=== PATIENT | male | born 1985 | race Caucasian/White ===

== ENCOUNTER 2025-02-07 18:22 | Emergency (ER) | payer SELFPAY ==
--- NOTE | ~2025-02-07 | XR_ITS ---
CLINICAL HISTORY: laceration to L 2nd 3rd digits 3 view left hand Comparison: None provided Findings: Comminuted fracture of the distal end of the middle phalanx of the third digit with intra-articular extension. Fracture is not significantly displaced. Degenerative changes of the proximal interphalangeal joint of the 5th digit, likely secondary to previous injury. No erosions. No radiopaque foreign body. Soft tissue swelling of the distal end of the 3rd digit. IMPRESSION: Comminuted nondisplaced intra-articular fracture of the middle phalanx of the 3rd digit. This document has been electronically signed by: Esteban Anne MD on 02/07/2025 19:07:12
[2025-02-07 18:30] VITALS: BP 129/74; PULSE 117; RESP 20; TEMP 37; O2SAT 95; BMI 31.4
--- NOTE | 2025-02-07 18:35 | ED_ITS ---
HPI - General Adult General Chief complaint: Wound/Laceration Stated complaint: hit by something from robotic machine tender production to hand Time Seen by Provider: 02/07/25 21:39 Source: patient, RN notes reviewed and old records reviewed Mode of arrival: ambulatory Limitations: no limitations History of Present Illness ED Provider: Bernadette HPI narrative: 39-year-old male presents for evaluation of a left hand laceration. 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 He feels as though something was jammed He shut the blades off. He did not stick his hand in the blades, but rather something which he believes was a block of ice shot out of the blades and struck him in the left hand He was wearing gloves but immediately felt pain to the 2nd and 3rd finger. He noticed a laceration on the palmar side of the knees. He reports his last tetanus was updated earlier this year Denies any other injuries Related Data Previous Rx's ?Medication ?Instructions ?Recorded cephalexin 500 mg tablet 500 mg PO TID #14 tabs 02/07 Allergies Allergy/AdvReac Type Severity Reaction Status Date / Time No Known Allergies Allergy Verified 02/07/25 18:37 Review of Systems Constitutional: Constitutional: Denies body ache(s), Denies chills and Denies fever(s) Cardiovascular: Cardiovascular: Denies chest pain and Denies dyspnea on exertion Respiratory: Respiratory: Denies cough and Denies dyspnea on exertion Musculoskeletal: Musculoskeletal: Reports arthralgias, Reports joint swelling and Reports limited range of motion Integumentary/Breasts: Skin/Breast: Denies erythema and Reports wounds PMFSH Social History Social History Advance Directives: No Advance Directives Information Provided: No Do you have a plan to hurt others: No Plan Physical Exam ED Vital Signs: Vital Signs - 24 hr 02/07/25 18:30 Temperature 98.6 F Pulse Rate 117 H Respiratory Rate 20 Blood Pressure 129/74 Pulse Oximetry 95 Oxygen Delivery Method Room Air BMI result Body Mass Index 31.4 Const General: healthy appearing, comfortable, no acute distress, alert and awake Nutritional Appearance: well nourished Orientation/consciousness: patient oriented x3 HENMT Head: Yes normocephalic and Yes atraumatic Eyes Eyelids: Yes eyelids normal Conjunctivae: conjunctivae normal Sclerae: sclerae normal Corneas: corneas normal Pupils: Equal, round and reactive pupils present EOM: EOMs intact bilaterally Neck Neck: Yes full ROM Resp Effort & Inspection: normal respiratory effort, able to speak in complete sentences and not labored Skin Other: The patient has very similar lacerations on the palmar surface of the left 2nd and 3rd fingers to the middle phalanx of each. Each laceration is linear, about 3cm in length. The patient is unable to flex each finger at the D IP joint. General skin exam: elasticity normal Neuro General: patient oriented x3 Cranial nerves: Yes Equal, round and reactive pupils present and Yes Bilaterally intact EOM present Cognition (Neuro): normal cognition Course Course Course Narrative: This is a Rapid Medical Examination (RME) performed by Gasper Montana PA-C in triage. Full HPI, ROS, assessment and treatment plan per primary provider in the Main ED. Hx: 39 yo M here for eval of left hand injury occurring [employer]. States he was snow blowing when something became stuck in the robotic machine tender production, he reached out with his left hand and something shot out of this no lower, struck him in his left hand. He is wearing gloves at the time. Pulled off his glove and saw that he had lacerations to his index and middle finger. he is unsure of what caused this. tdap is UTD. PE/vitals: deep lacerations noted to distal left 2nd and 3rd digits, palmar aspect, cap refill brisk, able to extend both digits. Plan: xrs, lac repair Medications Administered Discontinued Medications Generic Name Dose Route Start Last Admin Trade Name Donaldq PRN Reason Stop Dose Admin Lidocaine HCl 10 ml 02/07/25 21:58 02/07/25 22:02 Lidocaine Hcl 1 % 20 Ml Vial INFILTRATI 02/07/25 21:59 10 ml ONCE ONE Administration Naproxen 500 mg 02/07/25 21:59 02/07/25 22:02 Naproxen 500 Mg Tablet PO 02/07/25 22:00 500 mg ONCE ONE Administration Procedures Laceration Laceration 1: Site: hand Side (If applicable): left (2nd finger) Size (cm): 4 Description: linear Depth: simple, single layer Local Anesthetic: lidocaine 1% Amount of anesthesia used (mL): 3 Pre-repair: wound explored and irrigated extensively Skin layer closed with: nylon Size (cm): 5-0 Number of sutures: 10 Technique: simple, interrupted Laceration 2: Site: hand Side (If applicable): left (Third finger) Size (cm): 4 Description: linear Depth: simple, single layer Local Anesthetic: lidocaine 1% Amount of anesthesia used (mL): 3 Pre-repair: wound explored and irrigated extensively Skin layer closed with: nylon Size (cm): 5-0 Number of sutures: 8 Technique: simple, interrupted Medical Decision Making Medical Decision Making MDM Narrative: The patient has laceration to the ventral surface of the left 2nd and 3rd finger. He appears to have tendon laceration of each on exam. He is unable to flex and they can visualize piece of tendon that appears contracted on the 2nd digit. X-ray shows a comminuted fracture of the 3rd middle phalanx. I discussed with orthopedics, Declan Stringer who recommends closing the wounds, splinting of the fingers and the patient can be discharged to follow up in the office. The patient's tetanus is up-to-date per Differential Diagnosis Differential Diagnoses: The differential diagnosis associated with the presentation includes Finger laceration Open fracture Complicated tendon laceration Contusion Abrasion Consult Healthcare Provider Management of the patient was discussed with: Guide Dog Trainer (orthopedics) Independent Interpretation I performed an independent interpretation of an: Plain X-Ray (Third middle phalanx fracture) Radiology Impression Discussion of test interpretation with radiology: I have reviewed the radiologist's reading. Radiologist Impression: Findings: Comminuted fracture of the distal end of the middle phalanx of the third digit with intra-articular extension. Fracture is not significantly displaced. Degenerative changes of the proximal interphalangeal joint of the 5th digit, likely secondary to previous injury. No erosions. No radiopaque foreign body. Soft tissue swelling of the distal end of the 3rd digit. IMPRESSION: Comminuted nondisplaced intra-articular fracture of the middle phalanx of the 3rd digit. This document has been electronically signed by: Esteban Anne MD on 02/07/2025 19:07:12 Chronic Conditions Patient?s care impacted by: Diabetes Discharge Plan Discharge Clinical Impression: Complicated laceration of finger, Finger fracture, left Patient Disposition: Home, Self-Care Instructions: Finger Laceration (ED) Additional Instructions: You had 2 separate finger lacerations closed today. Had a total of 18 sutures placed Unfortunately it appears as though you have a tendon laceration to the 2nd and 3rd fingers on the flexor surface. You also have a fracture to the tip of the rest of the middle phalanx on the 3rd finger. It his important that you follow up with Orthopedics tomorrow, call around 9:00 a.m. to schedule an appointment. You will likely need a procedure to have the tendons repaired Return for new or worsening symptoms pain Take the antibiotic as prescribed for prophylaxis to prevent infection Prescriptions: New cephalexin 500 mg tablet 500 mg PO TID Qty: 14 0RF Referrals: [facility] [place] [facility] [Provider Group] Referral Note: left 2nd and 3rd finer laceration with flexor tendon injury. Also 3rd middle phalynx fracture Print Language: Bel[place]ian
--- OUTSIDE RECORDS SUMMARY | 2025-02-07 21:58 | XMS_ITS | Clinical Summary ---
Author Organization [address] Address [address] [place] [phone] Phone Care Team Providers Care Stick Inserter Name Role Phone Len Tobin MD Primary Care Provider Allergies No known active allergies Medications multivit-min/iron /folic acid/K (ADULTS MULTIVITAMIN ORAL) Take 1 Tablet by mouth every morning. Active B complex tablet Take 1 Tablet by mouth every morning. Active omega-3 fatty acids 1,000 mg capsule Take 1 Capsule by mouth daily. Active saccharomyces boulardii (FLORASTOR) 250 mg capsule Take 1 Capsule by mouth every morning. Active omeprazole OTC (PriLOSEC OTC) 20 mg EC tablet Take 1 tablet (20 mg total) by mouth 1 (one) time each day. Do not crush, chew, or split. Active empagliflozin (Jardiance) 25 mg tablet Take 1 tablet (25 mg total) by mouth 1 (one) time each day. 90 tablet 1 05/25/19 25 Active simethicone (MYLICON) 80 mg chewable tablet Chew 1 tablet (80 mg total) every 6 (six) hours if needed for flatulence. 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 2 mL 2 07/21/19 25 Active blood-glucose sensor (FreeStyle Lashay 3 Plus Sensor) device To check blood sugar 6 each 1 11/11/19 25 Active ciclopirox (PENLAC) 8 % solution Apply topically at bedtime. Apply over nail and surrounding skin. Apply daily over previous coat. After seven (7) days, may remove with alcohol and continue cycle. 6.6 mL 3 01/25/20 25 026 Active ciclopirox (LOPROX) 0.77 % cream Apply topically 2 (two) times a day. Gently massage into affected areas and surrounding skin 30 g 2 10/12/19 25 025 Active Problems Problem Noted Date Diagnosed Date Type 2 diabetes mellitus with obesity 02/09/2024 Overview (12/07/2024): 12/07/24 Regulatory IMO Update Type 2 diabetes mellitus wit h both eyes affected by proliferative retinopathy and macular edema, without long-term current use of insulin ([facility] [place], [facility] V[facility]) 02/09/2024 Hypertension 07/21/2023 Lactose intolerance 06/21/2022 Resolved Problems Problem Noted Date Diagnosed Date Resolved Date Type 2 diabetes mellitus wit h hyperglycemia, without long-term current use of insulin ([facility], [facility] V28) 07/21/2023 02/09/2024 Encounters Date Type Department Care Team Description 01/24/2025 9:30 AM EST Office Visit Orthopedic Surgery [facility] [address] [place] [phone] Nomi Witt, DPM Dermatophytosis of nail (Primary Dx); Diabetic mononeuropathy simplex ([facility], [facility] V28); Ingrowing nail 12/05/2024 Telephone Adult Medicine [address] [phone] Len Tobin MD from Last 3 Months Immunizations Immunization Administration Dates Next Due Tdap Tetanus diptheria acell ular pertussis (Boostrix; Adacel) 7yo and older 01/07/2024 Surgical History Surgery Date Site/Laterality Comments OTHER SURGICAL HISTORY PROCEDURE: DENIES PREVIOUS SURGERY Medical History Medical History Date Comments HTN (hypertension) DX:HTN (hyper tension) Type 2 diabetes mellitus wit hout complications ([facility], [facility] V28) DX:Type 2 diabetes mellitus without complications (HCC) Type 2 diabetes mellitus wit h hyperglycemia, without long-term current use of insulin ([facility], [facility] V28) 07/21/2023 Family History Medical History Relation Name Comments Diabetes Father Diabetes Paternal Grandmother Relation Name Status Comments Father Paternal Grandmother Social History Tobacco Use Types Packs/Day Years Used Date Smoking Tobacco: Never Smokeless Tobacco: Never Tobacco Cessation:Counseling Given: Not Answered Alcohol Use Standard Drinks/Week Comments Never 0 (1 standard drink = 0.6 oz pur e alcohol) Housing Instability Answer Date Recorde d Are you worried that in the next 2 months you may not have stable housing? No 07/20/2024 Food Access & Nutrition Answer Date Rec orded Do you have access to a vari ety of food including fruits and vegetables? Yes 07/20/2024 Access to Healthcare Answer Date Record ed Within the last 3 months, ho w many times did you visit the emergency department for your medical care? 0 07/20/2024 Health Literacy Answer Date Recorded How often do you need to hav e someone help you when you read instructions, pamphlets, or other written material from your doctor or pharmacy? Never 07/20/2024 Caregiver: How often do you need to have someone help you when you read instructions, pamphlets, or other written material from your doctor or pharmacy? Not on file 07/20/2024 Financial Risk Answer Date Recorded How hard is it for you to pa y for the very basics like food, housing, medical care, and air conditioning / heating? Not very hard 07/20/2024 Transportation Answer Date Recorded Has the lack of transportati on kept you from meetings, work, or from getting things needed for daily living? No Has the lack of transportati on kept you from medical appointments or from getting medications? No 07/20/2024 Social Isolation Answer Date Recorded How often do you feel lonely or isolated from th ose around you? Never 07/20/2024 Food Risk Answer Date Recorded Within the past 12 months we worried whether our food would run out before we got money to buy more. Never true 07/20/2024 Within the past 12 months th e food we bought just didn't last and we didn't have money to get more. Never true 07/20/2024 Dependent Care Answer Date Recorded Do you need help finding or paying for care for your loved ones. For example, child nutrition manager or elderly care for an older adult? No 07/20/2024 Education Answer Date Recorded Do you think completing more education or training, like finishing a GED, going to college, or learning a trade, would be helpful for you? No 07/20/2024 Employment and Income Answer Date Recor ded During the last four weeks, have you been actively looking for work? No 07/20/2024 Living Situation Answer Date Recorded What is your living situation? Unrecognized valu e 07/20/2024 Sex and Gender Information Value Date Recorded Sex Assigned at Not on file Legal Sex Male 11:07 AM EDT Gender Identity Not on file Sexual Orientation Not on file Obstetrics History Last Filed Vital Signs Vital Sign Reading Time Taken Comments Blood Pressure 114/73 07/27/2024 8:52 AM EDT Pulse 95 07/27/2024 8:52 AM EDT Temperature 35.9 C (96.7 F) 07/27/2024 8:52 AM EDT Respiratory Rate 15 07/27/2024 8:52 AM EDT Oxygen Saturation - - Inhaled Oxygen Concentration - - Weight 97.5 kg (215 lb) 08/15/2024 3:15 PM EDT Height 180.3 cm (5' 11 ) 08/15/2024 3:15 PM EDT Body Mass Index 29.99 08/15/2024 3:15 PM EDT Plan of Treatment Upcoming Encounters Date Type Department Care Team (Late st Contact Info) Description 05/26/2025 8:00 AM EDT Office Visit Adult Medicine [facility] [address] [place], [place] [phone] Yasmine Shannon PA [address] [place], [place] 07/24/2025 9:15 AM EDT Office Visit Orthopedic Surgery - [place] [address] [phone] Nomi Witt, DPM [address] [phone] Health Maintenance Due Date Last Done Comments Hepatitis B Vaccines (1 of 3 - 19+ 3-dose series) 2004 HPV Vaccines (1 - 3-dose SCDM series) 2012 Depression Screening 03/09/2024 Diabetes: Annual Foot Exam 08/26/2024 08/27/2023 COVID-19 Vaccine (2024- season) 2024 Diabetes: Annual Retina Eye Exam 12/15/2024 12/16/2023 Diabetes: Blood Sugar Control Test (HGBA1C) 03/29/2025 09/26/2024, 05/18/2024, 01/29/2024, Additional history exists Social Influencers of Health Screening 07/20/2025 07/20/2024 Diabetes: Annual Urine Albumin-Creatinine Ratio (uACR) 09/26/2025 09/26/2024, 05/18/2024, 01/29/2024, Additional history exists Diabetes: Annual GFR (Glomerular Filtration Rate) 09/26/2025 09/26/2024, 07/27/2024, 05/18/2024, Additional history exists Hypertension/CHF/CAD Annual BMP Blood Test 09/26/2025 09/26/2024, 07/27/2024, 05/18/2024, Additional history exists Cholesterol Screening (Lipid Panel) 09/26/2029 09/26/2024, 05/18/2024, 07/21/2023, Additional history exists DTaP,Tdap,and Td Vaccines (2 - Td or Tdap) 01/06/2034 01/07/2024 RSV Immunization Adult Patients (1 - 1-dose 75+ series) 2060 HIV Screening Completed 05/18/2024 Hepatitis C Screening Completed 05/18/2024 HIB Vaccines Aged Out No longer eligi ble based on patient's age to complete this topic Hepatitis A Vaccines Aged Out No long er eligible based on patient's age to complete this topic IPV Vaccines Aged Out No longer eligi ble based on patient's age to complete this topic Influenza Vaccine Discontinued MMR Vaccines Aged Out No longer eligi ble based on patient's age to complete this topic Meningococcal ACWY Vaccine Aged Out N o longer eligible based on patient's age to complete this topic Meningococcal B Vaccine Aged Out No l onger eligible based on patient's age to complete this topic Pneumococcal Vaccine: Pediatrics (0 to 5 Years) and At-Risk Patients (6 to 49 Years) Discontinued RSV Immunization Patients Under 20 months Aged Out No longer eligible based on patient's age to complete this topic Varicella Vaccines Aged Out No longer eligible based on patient's age to complete this topic Procedures Procedure Name Priority Date/Time Associated Diagnosis Comments MICROALBUMIN CREATININE URINE RATIO Routine 09/26/2024 8:23 AM EDT Type 2 diabetes mellitus with obesity ([facility] V24, [facility] V28) 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, without long-term current use of insulin ([facility] V24, [facility] V28) COMPREHENSIVE METABOLIC PANEL Routine 09/26/2024 8:23 AM EDT Type 2 diabetes mellitus with obesity ([facility] V24, [facility] V28) 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, without long-term current use of insulin ([facility] V24, [facility] V28) HEMOGLOBIN A1C Routine 09/26/2024 8:23 AM EDT Type 2 diabetes mellitus with obesity ([facility] V24, [facility] V28) 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, without long-term current use of insulin ([facility] V24, [facility] V28) LIPID PANEL WITH REFLEX TO DIRECT LDL Routine 09/26/2024 8:23 AM EDT Type 2 diabetes mellitus with obesity ([facility] V24, [facility] V28) 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, without long-term current use of insulin ([facility] V24, [facility] V28) HEPATITIS C ANTIBODY Routine 05/18/2024 8:20 AM EDT Need for hepatitis C screening test HIV 1, 2 ANTIBODY, P24 ANTIGEN WITH REFLEX TO DIFFERENTIATION Routine 05/18/2024 8:20 AM EDT Encounter for screening for HIV DIABETES FOOT EXAM Routine 08/27/2023 from Last 3 Months or Most Recently Relevant to Health Maintenance Results * (ABNORMAL) Lipid panel with reflex to direct LDL (09/26/2024 8:23 AM EDT) Cholesterol 159 0 - 200 mg/dL LAB CHEMISTRY METHOD 09/26/2024 1:11 PM EDT [facility] Triglycerides 142 0 - 150 mg/dL LAB CHEMISTRY METHOD 09/26/2024 1:11 PM EDT [facility] HDL 39(L) >=40 mg/dL LAB CHEMISTRY METHOD 09/26/2024 1:11 PM EDT [facility] LDL Calculated 92 0 - 100 mg/dL LAB CHEMISTRY METHOD 09/26/2024 1:11 PM [facility] VLDL Cholesterol Jose Manuel 28.4 mg/dL LAB CHEMISTRY METHOD 09/26/2024 1:11 PM T [facility] Non HDL Chol. (LDL+VLDL) 120 <145 mg/dL LAB CHEMISTRY METHOD 09/26/2024 1:11 PM T [facility] Chol/HDL Ratio 4.1 0.0 - 4.4 LAB CHEMISTRY METHOD 09/26/2024 1:11 PM [facility] Blood Venous blood specimen / Unknown Venipuncture / Unknown 09/26/2024 8:23 AM EDT 09/26/2024 8:23 AM EDT us Len Tobin MD LAB BLOOD ORDERABLES F inal Result Performing Organization Address City/[facility]/ZIP Co de Phone Number [facility] [address] [place] [address], [place] [phone] * Microalbumin creatinine urine ratio (09/26/2024 8:23 AM EDT) Creatinine, Urine 126.0 mg/dL LAB CHEMISTRY METHOD 09/26/2024 11:31 AM EDT [facility] Microalb, Ur 9.2 0.0 - 29.0 mg/L LAB CHEMISTRY METHOD 09/26/2024 11:31 AM EDT [facility] Microalb/Creat Ratio 7 <30 mg/g creat LAB CHEMISTRY METHOD 09/26/2024 11:31 AM EDT [facility] Urine Urine specimen obtained by clean catch procedure / Unknown Non-blood Collection / Unknown 09/26/2024 8:23 AM EDT 09/26/2024 8:23 AM EDT us Len Tobin MD LAB URINE ORDERABLES F inal Result Performing Organization Address [facility]/ZIP Co de Phone Number [facility] [address] [place] [address], [place] [phone] * (ABNORMAL) Hemoglobin A1c (09/26/2024 8:23 AM EDT) Hemoglobin A1C 6.7(H) <6.5 % LAB CHEMISTRY METHOD 09/26/2024 11:26 AM EDT [facility] Mean Bld Glu Estim. 146 mg/dL LAB CHEMISTRY METHOD 09/26/2024 11:26 AM EDT [facility] Blood Venous blood specimen / Unknown Venipuncture / Unknown 09/26/2024 8:23 AM EDT 09/26/2024 8:23 AM EDT us Len Tobin MD LAB BLOOD ORDERABLES F inal Result [facility] [address] [place] [address], * (ABNORMAL) Comprehensive metabolic panel (09/26/2024 8:23 AM EDT) Sodium 137 133 - 145 mmol/L LAB CHEMISTRY METHOD 09/26/2024 1:11 PM EDT [facility] Potassium 3.9 3.5 - 5.5 mmol/L LAB CHEMISTRY METHOD 09/26/2024 1:11 PM [facility] Chloride 102 96 - 110 mmol/L LAB CHEMISTRY METHOD 09/26/2024 1:11 PM [facility] CO2 30 21 - 32 mmol/L LAB CHEMISTRY METHOD 09/26/2024 1:11 PM [facility] Anion Gap 5 3 - 11 LAB CHEMISTRY METHOD 09/26/2024 1:11 PM [facility] Glucose 136(H) 70 - 100 mg/dL LAB CHEMISTRY METHOD 09/26/2024 1:11 PM [facility] BUN 14 5 - 25 mg/dL LAB CHEMISTRY METHOD 09/26/2024 1:11 PM [facility] Creatinine 0.78 0.70 - 1.30 mg/dL LAB CHEMISTRY METHOD 09/26/2024 [facility] e[facility] 116 >=60 mL/min/1. 73m2 LAB CHEMISTRY METHOD 09/26/2024 1:11 PM [facility] Comment:Calculation based on the Chronic Kidney Disease Epidemiology Collaboration (CKD-EPI) equation refit without adjustment for race. BUN/Creatinine Ratio 17.9 LAB CHEMISTRY METHOD 09/26/2024 1:11 PM [facility] Calcium 9.5 8.5 - 10.5 mg/dL LAB CHEMISTRY METHOD 09/26/2024 1:11 PM [facility] AST (SGOT) 16 10 - 42 unit/L LAB CHEMISTRY METHOD 09/26/2024 1:11 PM EDT [facility] ALT (SGPT) 30 10 - 60 unit/L LAB CHEMISTRY METHOD 09/26/2024 1:11 PM EDT [facility] Alkaline Phosphatase 59 42 - 121 unit/L LAB CHEMISTRY METHOD 09/26/2024 1:11 PM EDT [facility] Total Protein 7.7 6.0 - 8.0 g/dL LAB CHEMISTRY METHOD 09/26/2024 1:11 PM EDT [facility] Albumin 4.1 3.2 - 5.0 g/dL LAB CHEMISTRY METHOD 09/26/2024 1:11 PM EDT [facility] Total Bilirubin 0.4 0.0 - 1.4 mg/dL LAB CHEMISTRY METHOD 09/26/2024 1:11 PM EDT [facility] Blood Venous blood specimen / Unknown Venipuncture / Unknown 09/26/2024 8:23 AM EDT 09/26/2024 8:23 AM EDT us Len Tboin MD LAB BLOOD ORDERABLES F inal Result Performing Organization Address City/[facility]/ZIP Co de Phone Number [facility] [address] [place] [address], * Hepatitis C antibody (05/18/2024 8:20 AM EDT) Hepatitis C Antibody Negative Negative LAB CHEMISTRY METHOD 05/18/2024 5:42 PM EDT [facility] Blood Venous blood specimen / Unknown Venipuncture / Unknown 05/18/2024 8:20 AM EDT 05/18/2024 8:20 AM EDT us Len Tobin MD LAB BLOOD ORDERABLES F inal Result [facility] [address] [place] [address], [place] [phone] * HIV 1,2 antibody, p24 antigen with reflex to differentiation (05/18/2024 8:20 AM EDT) [facility] HIV Combo AB/AG Negative Negative LAB CHEMISTRY METHOD 05/18/2024 5:42 PM EDT [facility] Blood Venous blood specimen / Unknown Venipuncture / Unknown 05/18/2024 8:20 AM EDT 05/18/2024 8:20 AM EDT Narrative [facility] - 05/18/2024 5:42 PM EDT This assay is a 4th generation assay allowing for earlier detection of HIV infection by detecting the presence of the HIV-1 p24 antigen as well as the traditional antibodies to HIV type 1 (including group O) and type 2. Use of a 4th generation assay is the current CDC recommendation for HIV screening. Len Tobin MD LAB BLOOD ORDERABLES F inal Result Performing Organization Address City/[facility]/ZIP Co de Phone Number [facility] [address] [place] [address], [place] [phone] * Diabetes Foot Exam (08/27/2023) [facility] Diabetes: Annual Foot Exam Abstracted Historical Provider HEALTH MAINTENANCE Final Result from Last 3 Months or Most Recently Relevant to Health Maintenance Insurance [facility] Care Teams Stick Inserter Relationship Specialty Start Date End Date Len Tobin MD [address] [place] [phone] PCP - General 07/20/23
--- OUTSIDE RECORDS SUMMARY | 2025-02-07 21:58 | XMS_ITS | Data Portability ---
Author Organization VIDHYA Corbin [facility]ary [address] Address [address] [place] [address] Assessment No assessment recorded. Plan of Treatment Reminders Order Date Submit Date Provider Last Modified By Organization Details Last Modified Time Details Appointments None record ed. Lab None record ed. Referral None record ed. Procedures None record ed. Surgeries None record ed. Imaging None record ed. Medication Orders None record ed. Patient TargetsNo targets recorded. Patient Instructions Encounter Date Encounter Id Patient Instructions Last Modified By Organization Details Last Modified Time 06/21/2022 [id number] eustachian tube problems: care instructions [email or web address] Not available 06/21/2022 15:00:41 Based on your physical exam and presentation, you are being diagnosed with Eustachian Tube Dysfunction. This occurs when fluid/mucous or swelling closes off the tubes that help the ears equalize the pressure. The following are my recommendations to help with these symptoms and get this condition to resolve: 1. Saline Nasal [place] 2. Antihistamines like Claritin, Zyrtec, Diana, or benadryl 3. Tylenol for discomfort and help with the inflammation. 4. Heating pad or warm rice back to help with the discomfort 5. You can try sudafed, but I would not take this more than 5 days. This may overly dry out your throat and chest and cause symptoms. Unfortunately this condition may last 1-2 months, but usually resolve on its own. I am going to prescribe some medications to help resolve this faster. You were prescribed Prednisone - Here is some general Information regarding this medication. 1. Make sure you take with Food 2. Do not take right before bedtime -this should be taken during the day because it may make you a little more wired. May keep you from sleeping. 3. Prednisone will increase glucose -so if you are a diabetic then you will need to monitor your glucose closely. Please d/c if glucose goes above 300. 4. Do not take this medication with Ibuprofen If this does not improve in 2-3 months - an ENT would be the appropriate next step. Sometimes people will require Tubes to be placed temporarily. Thank you for using [facility], if you have any questions or concerns please do not hesitate to call or reach out to us. [email or web address] Not available 06/21/2022 15:00:05 Reason for Referral None Reported. Problems Name Problem SNOMED Code Status Onset Date Resolution Date Notes Provider Name and Address Organization Details Recorded Time Type 2 diabetes mellitus 68618354 Active 2022 WILLY jose PA - [facility] 3 14:50:32 Intolerance to lactose 816116791 Active 2022 WILLY jose PA - [facility] 14:51:09 Problem Notes None recorded. Medical Equipment None Reported. Allergies No known drug allergies Medications Not known to be on any medication Vitals Date Recorded Body height Body mass index (BMI) Body weight Body temperature Respiratory rate Heart rate Oxygen saturation Systolic And Diastolic Provider Name and Address Organization Details Last Updated DateTime 3 180.34 cm 32.4 kg/m2 867392. 43 g 98 [degF] 18 /min 100 /min 98 % 139/87 mm[Hg] WILLY Lewis PA - [facility] 14:53:11 Social History Question Answer Notes LastModified by [employer] Details LastModified Time Tobacco Smoking Status Never Smoker WILLY jose PA - [facility] 06/21/2022 14:51:27 What Is Your Water Source? City Information not available 06/21/2022 What Is Your Heat Source? Other Information not available 06/21/2022 Have You Had Direct Contact, Or Contact During Intimacy, With Monkeypox Rash, Scabs, Or Body Fluids From A Person With Monkeypox? No Information not available 06/21/2022 Have You Recently Traveled Abroad? No Information not available 06/21/2022 Sex: Unknown Functional Status Question Answer Note LastModified by Organizat ion Details LastModified Time Do you use any illicit or recreational drugs? No Information not available 06/21/2022 Do you or have you ever used any other forms of tobacco or nicotine? No Information not available 06/21/2022 What is your level of alcohol consumption? Occasional Information not available 06/21/2022 Mental Status None recorded. Family History Relationship Description Onset Age of this Age Resolved Age Notes LastModified by Organization Details LastModified Time Father No current problems or disability Not available 14:50:17 Mother No current problems or disability Not available 14:50:17 Medical History No medical history recorded. Past Encounters Encounter ID Performer Location Encounter Start Date Encounter Closed Date Diagnosis/Indication Diagnosis SNOMED-CT Code Diagnosis ICD10 Code Diagnosis IMO Codes Diagnosis Note [id number] [address] [address] [place] [address] 03/29/2020 13:49:29 03/29/2020 15:17:21 [id number] VIDHYA BOWDEN [address] [place] [address] 06/21/2022 14:16:00 06/21/2022 15:08:11 Dysfunction of right eustachian tube [id number] H69.91 Saline nasal spray. Continue the Jaren Selzer Cold is fine if it is helping. Health Concerns Section Related Observation LastModified by Organization Detai ls LastModified Time None Recorded Concern Status LastModified by Organization Details LastModified Time None Recorded Advance Directives Directive None Recorded Payers Insurance Date Sequence Insurance Name Policy Number Policy Vargas Covered Member ID Vargas Member ID Guarantor Name 06/21/2022 1 [employer]ETCAITLIN (EPO) [id number] Sukhjinder Jackson [id number] Sukhjinder Jackson 06/21/2022 1 SHAWNA (PPO) Sukhjinder Jackson [id number] Sukhjinder Jackson Notes Date Note Type Note Provider Name and Address Organization Details Recorded Time 06/21/2022 text/html Sinus Complaints UCReported by PatientHPIFor associated symptoms, patient reportsear fullnessbut reportsno nasal discharge,no fever,no difficulty breathing,no nausea or vomiting,no sore throat,no post nasal drip,no nasal passage blockage, andno cough. For context, patient reportsrecent upper respiratory infection. For onset/timing, patient reportsinitially started 1weeks ago. For quality, patient reportsimproving. For severity, patient reportsmild. For risk factors, patient reportsno current smoking or tobacco use. For alleviating factors, patient reportsotc meds other(better with jaren selzer cold.).The patient states had a sinus like infection that moved to the throat. Was taking OTC medications and the sinus throat issue has resolved. Is still blowing his nose and he blew his nose and got pain and pressure in the right ear. Feels clogged. Relief with the pain with the AlkaSelzer. Here to make sure he did not damage his TM or have an infection. VIDHYA BOWDEN [facility] [place], [address], PA - [facility] 06/21/2022 15:03:48
--- OUTSIDE RECORDS SUMMARY | 2025-02-07 21:58 | XMS_ITS ---
Author Name [facility] Organization Unknown Care Team Organization Name Specialty Phone Email Start Date End Da [facility] 10/26/2024
[2025-02-07] MEDS: Lidocaine HCl 1 % 20 ML VIAL 10 ML INFILTRATI (22:02)
[2025-02-08 00:26] VITALS: BP 129/74; PULSE 117; RESP 20; TEMP 37; O2SAT 95
== END 2025-02-08 00:26 | disposition home or self-care (01) ==
PROVIDERS: Emergency Provider Student in an Organized Health Care Education/Training Program; PCP Internal Medicine
DX: S61.211A Laceration without foreign body of left index finger without damage to nail, initial encounter (principal); S61.213A Laceration without foreign body of left middle finger without damage to nail, initial encounter; X58.XXXA Exposure to other specified factors, initial encounter; Y93.L9 Activity, other outdoor activity; Y92.9 Unspecified place or not applicable
CPT/HCPCS: 12004; 73130; 99283; J2003

== ENCOUNTER → 2025-02-07 18:34 | Outpatient (BNV) | payer SELFPAY | PROVIDERS: PCP Internal Medicine; Visit Provider Radiology Diagnostic Radiology | DX: S62.622A Displaced fracture of middle phalanx of right middle finger, initial encounter for closed fracture (principal) | CPT/HCPCS: 73130 ==

== ENCOUNTER 2025-02-08 10:49 | Outpatient (REF) | payer BC, SELFPAY ==
--- NOTE | ~2025-02-08 | XR_ITS ---
EXAMINATION: XR HAND 3 OR MORE VIEWS LEFT HISTORY: M79.642 - Pain in left hand COMPARISON: Comparison is made with the prior examination dated 02/07/2025. FINDINGS: Four views of the left hand are submitted. Osseous mineralization is normal. Again seen is a comminuted intra-articular fracture of the middle phalanx of the middle finger. No additional fracture is seen. There is no dislocation. There is moderate degenerative change of the 5th PIP joint. There is soft tissue injury to the volar aspects of the 2nd and 3rd fingers. XR/XR hand LT min 3V IMPRESSION: 1. Comminuted intra-articular fracture of the middle phalanx of the middle finger. 2. Soft tissue injury to the volar aspects of the 2nd and 3rd fingers. Electronically signed by: Carlos Holm MD 02/08/2025 11:52 AM [facility]N
--- OUTSIDE RECORDS SUMMARY | 2025-02-08 12:35 | XMS_ITS | Clinical Summary ---
Author Organization [address] Address [address] [place] [phone] Phone Care Team Providers Care Infertility Nurse Name Role Phone Len Tobin MD Primary [...] edema, without long-term current use of insulin ([facility], [facility] V28) Inject 0.5 mL (7.5 mg total) [...] edema, without long-term current use of insulin ([facility], [facility]) 02/09/2024 Hypertension 07/21/2023 Lactose intolerance 06/21/2022 Resolved Problems Problem Noted Date Diagnosed Date Resolved Date Type 2 diabetes mellitus wit h hyperglycemia, without long-term current use of insulin ([facility], [facility] V28) 07/21/2023 02/09/2024 Encounters Date Type Department Care Team Description 01/24/2025 9:30 AM EST Office Visit Orthopedic Surgery [facility] [address] [place] [phone] Nomi Witt, DPM Dermatophytosis of nail (Primary Dx); Diabetic mononeuropathy simplex ([facility], [facility] V28); Ingrowing nail 12/05/2024 Telephone Adult Medicine [address] [phone] Len Tobin MD from Last 3 Months Immunizations Immunization Administration Dates Next Due Tdap Tetanus diptheria acell ular pertussis (Boostrix; Adacel) 7yo and older 01/07/2024 Surgical History Surgery Date Site/Laterality Comments OTHER SURGICAL HISTORY PROCEDURE: DENIES PREVIOUS SURGERY Medical History Medical History Date Comments HTN (hypertension) DX:HTN (hyper tension) Type 2 diabetes mellitus wit hout complications ([facility], [facility] V28) DX:Type 2 diabetes mellitus without complications (HCC) Type 2 diabetes mellitus wit h hyperglycemia, without long-term current use of insulin ([facility], [facility] V28) 07/21/2023 Family History Medical History Relation [...] care for your loved ones. For example, early childhood director or elderly care for an older adult? [...] Care Team (Late st Contact Info) Description 02/17/2025 10:00 AM EST Office Visit Adult Medicine [facility] [address] [place], [place] [phone] Len Tobin MD [address] [place], [place] 05/26/2025 8:00 AM EDT Office Visit Adult Medicine [facility] [address] [place], [place] [phone] Yasmine Shannon PA [address] [place], [place] 07/24/2025 9:15 AM EDT Office Visit Orthopedic Surgery - [place] [address] [phone] Nomi Witt, DPM [address] [phone] Health Maintenance Due Date Last Done Comments Hepatitis B Vaccines (1 of 3 - 19+ 3-dose series) 2004 HPV Vaccines (1 - 3-dose SCDM series) 2012 Depression Screening 03/09/2024 Diabetes: Annual Foot Exam 08/26/2024 08/27/2023 COVID-19 Vaccine ( season) 2024 Diabetes: Annual Retina Eye Exam [...] EDT Type 2 diabetes mellitus with obesity ([facility] V24, [facility] V28) 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, without long-term current use of insulin ([facility] V24, [facility] V28) COMPREHENSIVE METABOLIC PANEL Routine 09/26/2024 8:23 AM EDT Type 2 diabetes mellitus with obesity ([facility] V24, [facility] V28) 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, without long-term current use of insulin ([facility] V24, [facility] V28) HEMOGLOBIN A1C Routine 09/26/2024 8:23 AM EDT Type 2 diabetes mellitus with obesity ([facility] V24, [facility] V28) 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, without long-term current use of insulin ([facility], [facility] V28) LIPID PANEL WITH REFLEX TO DIRECT LDL Routine 09/26/2024 8:23 AM EDT Type 2 diabetes mellitus with obesity ([facility], [facility] V[facility]) 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, without long-term current use of insulin ([facility], [facility] V28) HEPATITIS C ANTIBODY Routine 05/18/2024 8:20 [...] 1:11 PM [facility] Triglycerides 142 0 - 150 mg/dL LAB CHEMISTRY METHOD 09/26/2024 1:11 PM [facility] HDL 39(L) >=40 mg/dL LAB CHEMISTRY METHOD 09/26/2024 1:11 PM [facility] LDL Calculated 92 0 - 100 mg/dL LAB CHEMISTRY METHOD 09/26/2024 1:11 PM [facility] VLDL Cholesterol Jose Manuel 28.4 mg/dL LAB CHEMISTRY METHOD 09/26/2024 1:11 PM [facility] Non HDL Chol. (LDL+VLDL) 120 <145 mg/dL LAB CHEMISTRY METHOD 09/26/2024 1:11 PM [facility] Chol/HDL Ratio 4.1 0.0 - 4.4 LAB CHEMISTRY METHOD 09/26/2024 1:11 PM EDT [facility] Blood Venous blood specimen / Unknown Venipuncture / Unknown 09/26/2024 8:23 AM EDT 09/26/2024 8:23 AM EDT us Len Tobin MD LAB BLOOD ORDERABLES F inal Result Performing Organization Address City/[facility]/ZIP Co de Phone Number [facility] [address] [place] [address], [place] [phone] * Microalbumin creatinine urine ratio (09/26/2024 8:23 AM EDT) Creatinine, Urine 126.0 mg/dL LAB CHEMISTRY METHOD 09/26/2024 11:31 AM EDT [facility] Microalb, Ur 9.2 0.0 - 29.0 mg/L LAB CHEMISTRY METHOD 09/26/2024 11:31 AM EDT [facility] Microalb/Creat Ratio 7 <30 mg/g creat LAB CHEMISTRY METHOD 09/26/2024 11:31 AM EDT [facility] Urine Urine specimen obtained by clean catch procedure / Unknown Non-blood Collection / Unknown 09/26/2024 8:23 AM EDT 09/26/2024 8:23 AM EDT us Len Tobin MD LAB URINE ORDERABLES F inal Result Performing Organization Address City/[facility]/ZIP Co de Phone Number [facility] [address] [place] [address], [place] [phone] * (ABNORMAL) Hemoglobin A1c (09/26/2024 8:23 AM EDT) Hemoglobin A1C 6.7(H) <6.5 % LAB CHEMISTRY METHOD 09/26/2024 11:26 AM EDT [facility] Mean Bld Glu Estim. 146 mg/dL LAB CHEMISTRY METHOD 09/26/2024 11:26 AM [facility] Blood Venous blood specimen / Unknown Venipuncture / Unknown 09/26/2024 8:23 AM EDT 09/26/2024 8:23 AM EDT us Len Tobin MD LAB BLOOD ORDERABLES F inal Result [facility] [address] [place] [address], [place] [phone] * (ABNORMAL) Comprehensive metabolic panel (09/26/2024 8:23 AM EDT) Sodium 137 133 - 145 mmol/L LAB CHEMISTRY METHOD 09/26/2024 1:11 PM [facility] Potassium 3.9 [...] 1:11 PM [facility] eGFR 116 >=60 mL/min/1. 73m2 LAB CHEMISTRY METHOD 09/26/2024 1:11 PM EDT [facility] Comment:Calculation based on the Chronic Kidney Disease Epidemiology Collaboration (CKD-EPI) equation refit without adjustment for race. BUN/Creatinine Ratio 17.9 LAB CHEMISTRY METHOD 09/26/2024 1:11 PM EDT [facility] Calcium 9.5 8.5 - 10.5 mg/dL LAB CHEMISTRY METHOD 09/26/2024 1:11 PM [facility] AST (SGOT) 16 10 - 42 unit/L LAB CHEMISTRY METHOD 09/26/2024 1:11 PM T [facility] ALT (SGPT) 30 10 - 60 unit/L LAB CHEMISTRY METHOD 09/26/2024 1:11 PM [facility] Alkaline Phosphatase 59 42 - 121 unit/L LAB CHEMISTRY METHOD 09/26/2024 1:11 PM [facility] Total Protein 7.7 6.0 - 8.0 g/dL LAB CHEMISTRY METHOD 09/26/2024 1:11 PM [facility] Albumin 4.1 3.2 - 5.0 g/dL LAB CHEMISTRY METHOD 09/26/2024 1:11 PM [facility] Total Bilirubin 0.4 0.0 - 1.4 mg/dL LAB CHEMISTRY METHOD 09/26/2024 1:11 PM [facility] Blood Venous blood specimen / Unknown Venipuncture / Unknown 09/26/2024 8:23 AM EDT 09/26/2024 8:23 AM EDT us Len Tobin MD LAB BLOOD ORDERABLES F inal Result [facility] [address] [place] [address], * Hepatitis C antibody (05/18/2024 8:20 AM EDT) Hepatitis C Antibody Negative Negative LAB CHEMISTRY METHOD 05/18/2024 5:42 PM EDT [facility] Blood Venous blood specimen / Unknown Venipuncture / Unknown 05/18/2024 8:20 AM EDT 05/18/2024 8:20 AM EDT Len Tobin MD LAB BLOOD ORDERABLES F inal Result Performing Organization Address [facility]/ZIP Co de Phone Number [facility] [address] [place] [address], [place] [phone] * HIV 1,2 antibody, p24 antigen with reflex to differentiation (05/18/2024 8:20 AM EDT) [facility] HIV Combo AB/AG Negative Negative LAB CHEMISTRY METHOD 05/18/2024 5:42 PM EDT [facility] Blood Venous blood specimen / Unknown Venipuncture / Unknown 05/18/2024 8:20 AM EDT 05/18/2024 8:20 AM EDT Narrative [facility] - 05/18/2024 5:42 PM [...] ORDERABLES F inal Result Performing Organization Address City/[facility]/ZIP Co de Phone Number [facility] [address] [place] [address], [place] [phone] * Diabetes Foot Exam (08/27/2023) [facility] Diabetes: Annual Foot Exam Abstracted Sidney Morris MD HEALTH MAINTENANCE Final Result from Last 3 Months or Most Recently Relevant to Health Maintenance Insurance [facility] ([facility]) Care Teams Infertility Nurse Relationship Specialty Start Date End Date Len Tobin MD [address] [place] [phone] PCP - General 07/20/23
--- NOTE | 2025-02-13 08:00 | HO.ANESPROP2 ---
Documented by User: Jacquelin Grissom NP 02/13/25 08:01 HPI - Anesthesia Eval Consult details Narrative: 39 yr old male for left middle finger ORIF, I&D Type 2 DM: A1C 6.7% September 2024 Anesthesia Pre-Procedure Meds Is the patient on any of the following meds?: GLP1/DPP4 and SGLT2 Inhib [facility] Active Problems Active Problems: All Active Problems (Updated 02/09/25 @ 00:00 by Eileen Herrera) Laceration of left index finger (Acute) Open fracture of phalanx of left middle finger (Acute) Past Medical History Medical History Type 2 diabetes mellitus Social History Social History Alcohol intake: never Patient Tobacco Use Status: Never used Tobacco Advance Directives: No Advance Directives Information Provided: Yes Current occupational status: employed 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, 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 Meds Allergies Allergy/AdvReac Type Severity Reaction Status Date / Time No Known Allergies Allergy Verified 02/08/25 11:10 Home Medications ?Medication ?Instructions ?Recorded ?Confirmed ?Last Taken ?Type ciclopirox 8 % topical solution topical 02/08/25 Unknown History empagliflozin 25 mg tablet 25 mg PO DAILY 02/08/25 Unknown History (Jardiance) simethicone 80 mg chewable tablet 80 mg PO Q6H PRN 02/08/25 Unknown History tirzepatide 7.5 mg/0.5 mL 7.5 mg subcut QWEEK 02/08/25 Unknown History subcutaneous pen injector (Eran) Documented by User: Ariane Haynes MD 02/13/25 13:17 PMFSH Past Medical History Medical History Type 2 diabetes mellitus Surgical History History of Problems with Anesthesia: No Social History Social History Alcohol intake: never Patient Tobacco Use Status: Never used Tobacco Advance Directives: No Advance Directives Information Provided: Yes Current occupational status: employed 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, 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 Meds Allergies Allergy/AdvReac Type Severity Reaction Status Date / Time No Known Allergies Allergy Verified 02/08/25 11:10 Home Medications ?Medication ?Instructions ?Recorded ?Confirmed ?Last Taken ?Type ciclopirox 8 % topical solution topical 02/08/25 Unknown History empagliflozin 25 mg tablet 25 mg PO DAILY 02/08/25 Unknown History (Jardiance) simethicone 80 mg chewable tablet 80 mg PO Q6H PRN 02/08/25 Unknown History tirzepatide 7.5 mg/0.5 mL 7.5 mg subcut QWEEK 02/08/25 Unknown History subcutaneous pen injector (Mounjaro) Exam Airway Mallampati Class: III TM Dist: >3cm Neck ROM: Full Loose/Missing/Broken Teeth: No Heart: RRR Lungs: CTA Assessment and Plan Assessment Anesthesia Assessment: Anesthesia Plan Discussed Final Anesthetic Review History of Problems with Anesthesia: No NPO: Yes ASA Class: II Final Preanesthetic Review: Meds/Allgs Chart Reviewed, Consent Obtained/Reviewed and Anes Risks/Benef Reviewed Patient Risk: Low Procedure Risk: Low Anesthetic Plan Anesthetic Plan: GA Disposition: Standard PACU
== END 2025-02-08 10:50 | disposition home or self-care (01) ==
LOC: HO.HOSX 10:49
DX: S62.603B Fracture of unspecified phalanx of left middle finger, initial encounter for open fracture (principal); W22.8XXA Striking against or struck by other objects, initial encounter
CPT/HCPCS: 73130

== ENCOUNTER 2025-02-08 10:59 | Outpatient (AMB) | payer BC, SELFPAY ==
[2025-02-08 11:10] VITALS: BMI 31.4
--- NOTE | 2025-02-08 11:10 | A.OFFVIS_ITS ---
Vital Signs 02/08/25 11:10 Height 5 ft 11 in Weight 225 lb BMI 31.4 Intake Visit Reasons: FC-LT hand/PF MF Flexor Tendon Lac.-DOI 02/07/25 Intake Note: Frantz is a 39 year old - hand dominant male, new patient, who presents today for a Fracture Care Visit status post Left Index Finger & Middle Finger Flexor Tendon Laceration, and a Left Middle Finger Fracture, at the middle phalanx. DOI 02/07/25. Patient reported to the ED he was using a perioperative assistant when something struck him. He stated he was wearing gloves at the time and did not stick his fingers into the blower. He was started on Cephalexin. Today, patient reports numbness and swelling. He is taking Aleve with some relief. He reports previous left small finger fracture about 4 years ago for which he did not seek medical care. 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 History of T2DM. Per patient, last A1C was 6.7% back in October,. Allergies No Known Allergies Allergy (Verified 02/08/25 11:10) HPI HPI FC-LT hand/PF MF Flexor Tendon Lac.-DOI 02/07/25: Details: Frantz is a 39 year old - hand dominant male, new patient, who presents today for a Fracture Care Visit status post Left Index Finger & Middle Finger Flexor Tendon Laceration, and a Left Middle Finger Fracture, at the middle phalanx. DOI 02/07/25. Patient reported to the ED he was using a perioperative assistant when something struck him. He stated he was wearing gloves at the time and did not stick his fingers into the blower. He was started on Cephalexin. Today, patient reports numbness and swelling in both the index and middle fingers of the left hand.. He is taking Aleve with some relief. He reports previous left small finger fracture about 4 years ago for which he did not seek medical care. 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 History of T2DM. Per patient, last A1C was 6.7% back in October,. 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 Neuro: Diminished sensation of the radial nerve distribution of the tips of index and middle fingers of the left hand at this time Vascular: Cap refill brisk Pain: Significant tenderness to palpation about the distal aspect of the middle phalanx of the left middle finger Some discomfort with range of motion of the left index and middle fingers ROM: Patient is able to actively flex and extend at all joints of all digits of the left hand in the office today Skin: Approximately 3-4 cm in length lacerations noted of the volar aspect of the left index and middle fingers, at the level of the D IP joints General: No ecchymosis, erythema, or evidence of infection. Psych: Appears grossly normal Affect normal Attitude cooperative Results Reviewed Results Reviewed: X-rays obtained in the office today and independently reviewed by me, Alex Victor PA-C, demonstrate mildly displaced, comminuted, intra-articular fracture of the distal middle phalanx of the left middle finger. Assessment & Plan Assessment & Plan (1) Open fracture of phalanx of left middle finger: Code(s): S62.603B - Fracture of unspecified phalanx of left middle finger, initial encounter for open fracture Category: Medical (2) Laceration of left index finger: Code(s): S61.211A - Laceration without foreign body of left index finger without damage to nail, initial encounter Category: Medical Plan 1. Open fracture of middle phalanx of the left middle finger Date of injury 02/07/2025 Case was discussed with Dr. Ronquillo, who was available to see the patient with me in clinic today, and a collaborative treatment plan was formed: At this time, there was a very low index of suspicion for flexor tendon injury, as the patient is able to actively flex at all joints of the left middle and index fingers Therefore, there is no acute intervention indicated for the laceration of the left index finger, as is demonstrating no signs or symptoms of infection However, as the patient does have a displaced open fracture of the left middle finger, surgery is his best option I educated the patient about the condition. I discussed both operative and nonoperative treatment options. The patient would like to proceed with surgery. The risks and benefits of operative treatment were discussed with the patient and the patient wishes to proceed with surgery. These risks include, but are not limited to, risk of damage to blood vessels, nerves, tendons, infection, recurrence, incomplete relief of preoperative symptoms, persistent pain, possible need for further surgery, and the risks associated with regional blocks and/or anesthesia. Plan is to take the patient to the operating room at some point in the next few weeks for the following procedures: 1. Left middle finger open fracture I and D under general 2. Left middle finger ORIF under general All of the preoperative paperwork including the consent was discussed today. All of the patient's questions were answered in the clinic today. The patient understands that they will be in contact with our certified surgical tech/first assistant to discuss scheduling their procedure. Patient reports diabetes, last A1c 6.7. Patient is advised to hold his Jardiance until postoperatively Denies blood thinners, asthma, heart issues, lung issues, kidney issues, or current smoking. Antibiotics switched to Augmentin today, patient is provided with a 10 day supply to cover him until surgery and for a week afterwards Orders: Orders XR hand LT min 3V Today M79.642 - Pain in left hand Medications: New amoxicillin-pot clavulanate 875-125 mg 1 tab PO BID 20 tabs 0RF 10 days Coding Level of Care Code New Pt Level 4 (90639) Diagnoses Open fracture of phalanx of left middle finger S62.603B Laceration of left index finger S61.211A
== END 2025-02-08 12:16 | disposition home or self-care (01) ==
LOC: HO.HOS 10:59
PROVIDERS: PCP Internal Medicine
DX: S62.603A Fracture of unspecified phalanx of left middle finger, initial encounter for closed fracture (principal); S61.211A Laceration without foreign body of left index finger without damage to nail, initial encounter
CPT/HCPCS: 99204

== ENCOUNTER → 2025-02-08 11:04 | Outpatient (BNV) | payer BC, SELFPAY | PROVIDERS: Visit Provider Radiology Diagnostic Radiology | DX: S62.623A Displaced fracture of middle phalanx of left middle finger, initial encounter for closed fracture (principal) | CPT/HCPCS: 73130 ==

== ENCOUNTER 2025-02-13 13:06 | Day surgery (SDC) | payer BC, SELFPAY ==
[2025-02-13] VITALS (7 sets, daily range): BP systolic 105–126; BP diastolic 56–77; PULSE 84–99; RESP 12–23; TEMP 36.3; O2SAT 96–99; BMI 32.1
--- NOTE | ~2025-02-13 | FL_ITS ---
EXAMINATION: FLUOROSCOPY GUIDANCE FOR NEEDLE PLACEMENT CLINICAL INFORMATION: L middle finger ORIF COMPARISON: Previous x-ray February 08, 2025 TECHNIQUE: Intraoperative fluoroscopy guidance for ORIF of left third finger middle phalanx fracture FINDINGS: Images demonstrate 3 K wires or pins transfixing the comminuted fracture of the distal middle phalanx of the left third finger intra-articular with the DIP joint. FLUOROSCOPY TIME: 51 seconds DOSE AREA PRODUCT: 0.08 Gy-cm2 FL/FL guidance in OR IMPRESSION: Fluoroscopy guidance for ORIF of fracture of the middle phalanx of the left third finger. Electronically signed by: Ariane Choi MD 02/13/2025 04:35 PM [facility]
--- NOTE | 2025-02-13 13:37 | P.HPSUR_ITS ---
Pre-Procedural Eval Section A - 24 Hr Update-Section A only Date of Service: 02/13/25 The patient is an INPATIENT: No Changes since office visit: No Cold of Flu in the past 2 weeks, No New Medical Problems, No Changes in Medication and No Patient answered all questions The patient has been examined within 24 hours of the surgical procedure. The History & Physical has been completed within 30 days and I have reviewed it.: Yes Section B - Complete if H&P > 30 days Chief Complaint: Laceration of flexor muscle, fascia and tendon Allergies: Allergies Allergy/AdvReac Type Severity Reaction Status Date / Time No Known Allergies Allergy Verified 02/13/25 13:34 Plan Diagnosis/Plan: Unchanged (Assessment and plan:) I have reviewed the history and physical and performed a pertinent physical examination on my patient. No changes have occurred unless specified. Assessment and plan: 1. 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 He says he last ate a snack or half a sandwich around 23:30 last night. He has had nothing to eat or drink today. I spoke with the patient about the risks and benefits of surgery including some of the increased risks the anesthesia talk to him about because he took garden she yesterday. As this is an open fracture I think delaying this any further poses an increased risk for infection. As we have already delayed this surgery by 5 days, I feel it is urgent/emergent that we get him taken care of today. I also talked to the patient about these issues and he is in agreement to proceed with surgery. Time Spent With Patient Time: Total time managing care of this patient today ____ minutes.
--- NOTE | 2025-02-13 14:12 | P.OP_ITS ---
Operative Note Operative Note Date of Service: 02/13/25 Narrative: Operative Note Narrative: Preop diagnosis: 1. Open left middle finger middle phalanx fracture with comminution Postop diagnosis: Same Procedure: 1. Left middle finger middle phalanx fracture I&D 2. Left middle finger middle phalanx fracture closed reduction percutaneous pinning Surgeon: Keesha Ronquillo MD Pharmacy Operations Coordinator: None Anesthesia: General Anesthesia Findings: finger fracture, serous fluid found within the wound of the middle finger, FDP tendon to the middle finger was visualized and found to be intact. Implants: 0.045 K-wires times 2, 0.035 K-wires times 1 Tourniquet time: None EBL: Minimal Specimen: Cultures of fluid within the wound of the middle finger Drains: None Complications: None Disposition: Brought to the recovery room in stable condition Plan: Follow-up in 10-14 days for a wound check, check cultures, postop radiographs and for placement in a short-arm finger spica cast or splint. At this time we can likely make the finger spica cast include the middle ring and small fingers and allow the index finger to oppose the thumb to pull up his pants. Anticipate K-wire removal in 4 weeks based on interval bony healing Educate the patient that full fracture healing anticipated in approximately 8-12 weeks. 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 . The risks and benefits of operative treatment, including but not limited to risk of damage to blood vessels, nerves, tendons, infection, recurrence, delayed or nonunion of fracture, persistent pain or numbness, incomplete resolution of preoperative symptoms, or need for further surgery were discussed with the patient and they wished to proceed with surgery. Procedure: Once consent was obtained patient was brought back to the operating suite and placed in the operating table in a supine position. . Perioperative antibiotics and general anesthesia was administered by the anesthesia team. A tourniquet was applied to the proximal aspect of the left upper extremity and the limb was prepped and draped in a standard surgical fashion. Tourniquet was not inflated during the case. I began with our I&D. The radial side of the volar laceration to the middle finger appeared to be most likely to communicate with the middle phalanx fracture. All of the sutures were removed from the laceration to the volar aspect of the middle finger. There was some serous drainage within which I cultured with a culture swab. The wound, including its communication with the bony fracture on the radial side was then copiously irrigated with normal saline. The flexor digitorum profundus tendon was evaluated and found to be intact, as was the A4 miladys. At this point the wound was again copiously irrigated and the skin edges were reapproximated with some 4-0 Prolene suture material. I then turned my attention to the middle phalanx fracture which was comminuted and had an intra-articular step-off at the distal articular surface of the middle phalanx. Five K-wire through the radial aspect of the distal articular surface of the left middle finger middle phalanx. I then used this K-wire to facilitate a reduction of the articular surface. Once the fracture fragment was reduced such that the articular surface no longer had a step-off, the K-wire was then advanced into the more ulnar fragment. A 0.035 K-wire was then also placed through the distal radial articular surface and advanced dorsal to the 1st K- wire and across to the opposite cortex to facilitate fixation. I then placed a 2nd 0.045 K-wire through the radial base of the and advanced the K-wire to the ulnar cortex of the middle phalanx The FluoroScan was used during the case to assist with our fracture reduction and placement of all implants. Once satisfied with our reduction and internal fixation on multiple fluoroscopic images the K-wires were bent and cut short and pin caps applied. Final fluoroscopic images were then obtained. The wounds were copiously irrigated with normal saline. A digital block was performed with some 1% lidocaine with epinephrine for postop pain control. A Sterile dressing and short volar splint extending from the tips of the index and middle fingers to the forearm was applied. The patient appears to have tolerated the procedure well and with no complications. All digits were well vascularized at the conclusion of the case.
[2025-02-13 14:17] LABS: Glucose, Whole Blood 131 mg/dL (60-115)
[2025-02-13] MEDS: Lactated Ringers 1,000 ML 50 ML IVCONT (14:17)
== END 2025-02-13 17:05 | disposition home or self-care (01) ==
PROVIDERS: PCP Internal Medicine; Visit Provider Orthopaedic Surgery
PROC: (CPT 26727; principal; 2025-02-13 15:30)
DX: S62.623B Displaced fracture of middle phalanx of left middle finger, initial encounter for open fracture (principal); S66.123A Laceration of flexor muscle, fascia and tendon of left middle finger at wrist and hand level, initial encounter; R20.0 Anesthesia of skin; X58.XXXA Exposure to other specified factors, initial encounter; W20.8XXA Other cause of strike by thrown, projected or falling object, initial encounter; Y93.29 Activity, other involving ice and snow; Y92.9 Unspecified place or not applicable; E11.9 Type 2 diabetes mellitus without complications; Z79.85 Long-term (current) use of injectable non-insulin antidiabetic drugs; Z79.899 Other long term (current) drug therapy
CPT/HCPCS: 26727; 82947; 87070; 87205; J0131; J0690; J1100; J1630; J2003; J2004; J2250; J2405; J2704; J3010

== ENCOUNTER → 2025-02-13 13:06 | Outpatient (BNV) | payer BC, SELFPAY | PROVIDERS: PCP Internal Medicine; Visit Provider Orthopaedic Surgery | DX: S62.623B Displaced fracture of middle phalanx of left middle finger, initial encounter for open fracture (principal) | CPT/HCPCS: 11012; 26727 ==

== ENCOUNTER 2025-02-21 09:28 | Outpatient (AMB) | payer BC, SELFPAY ==
--- OUTSIDE RECORDS SUMMARY | 2025-02-17 10:00 | XMS_ITS | Encounter Summary ---
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 For example, childcare administrator or elderly care for an older adult? [...] on file Sexual Orientation Not on file documented as of this encounter Last Filed Vital Signs Vital Sign Reading Time Taken Comments Blood Pressure 116/82 02/17/2025 10:18 AM EST Pulse 106 02/17/2025 10:18 AM EST Temperature 36.1 C (96.9 F) 02/17/2025 10:18 AM EST Respiratory Rate 15 02/17/2025 10:18 AM EST Oxygen Saturation 98% 02/17/2025 10:18 AM EST Inhaled Oxygen Concentration - - Weight 109 kg (240 lb) 02/17/2025 10:18 AM EST Height 180.3 cm (5' 11 ) 02/17/2025 10:18 AM EST Body Mass Index 33.47 02/17/2025 10:18 AM EST documented in this encounter Progress Notes * Ana Edwards MA - 02/17/2025 10:00 AM EST Depression Screening Will the patient answer the depression risk questions?: Yes Over the last 2 weeks, how often have you been bothered by little interest or pleasure in doing things?: Not at all Over the last 2 weeks, how often have you been bothered by feeling down, depressed, or hopeless?: Not at all Depression Risk: 0 Additional Depression Screening PHQ -9 Depression Risk Score: 0 Screening Result: Negative Risk Category: Negative Visit Vitals BP 116/82 Pulse 106 Temp 36.1 ??C (96.9 ??F) (Temporal) Resp 15 Ht 1.803 m (71 ) Wt 109 kg (240 lb) SpO2 98% BMI 33.47 kg/m?? Smoking Status Never BSA 2.28 m?? * Len Tobin MD - 02/17/2025 10:00 AM EST SUBJECTIVE: Frantz Jackson is a 39 y.o. male who presents today for Chief Complaint Patient presents with Follow-up HPI: Patient presenting for ER discharge follow-up. 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 Unfortunately he also sprained his left middle finger open middle phalanx fracture and underwent open reduction and fixation just a few days ago. He is scheduled to see first postop on the . He has been followed at [facility]. Current Meds: Current Medications[1] Allergies: Allergies[2] Immunizations: Immunization History Administered Date(s) Administered Tdap Tetanus diptheria acellular pertussis (Boostrix; Adacel) 7yo and older 01/07/2024 Active Problems: Problem List[3] HISTORY: Medical History[4] Surgical History[5] Family History[6] Social History Socioeconomic History Marital status: Single Spouse name: Not on file Number of children: Not on file Years of education: Not on file Highest education level: Not on file Occupational History Not on file Tobacco Use Smoking status: Never Smokeless tobacco: Never Substance and Sexual Activity Alcohol use: Never Drug use: Never Sexual activity: Not on file Other Topics Concern Not on file Social History Narrative Not on file ROS: GENERAL: Negative for malaise, significant weight loss and fever RESPIRATORY: No cough, wheezing or shortness of breath CARDIOVASCULAR: Negative for chest pain, leg swelling and palpitations GI: Negative for abdominal discomfort, changes in bowel habits, blood in stool or black stools VITAL SIGNS Vitals: 02/17/25 1018 BP: 116/82 Pulse: 106 Resp: 15 Temp: 36.1 ??C (96.9 ??F) TempSrc: Temporal SpO2: 98% Weight: 109 kg (240 lb) Height: 1.803 m (71 ) Body mass index is 33.47 kg/m??. Body surface area is 2.28 meters squared. PHYSICAL EXAM: Blood pressure 116/82, pulse 106, temperature 36.1 ??C (96.9 ??F), temperature source Temporal, resp. rate 15, height 1.803 m (71 ), weight 109 kg (240 lb), SpO2 98%. Body mass index is 33.47 kg/m??.Plan is deferred until next visit APPEARANCE: Alert and in no acute distress HEART: RRR with normal S1 and S2, no murmurs, no gallops, no JVD appreciated CHEST: non-tender LUNG: clear to auscultation bilaterally ASSESSMENT/PLAN: Frantz was seen today for follow-up. 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 He is currently managed for diabetes with Mounjaro and Jardiance. Recent average blood sugar has been in the 160s. He will have repeat labs done next month. Advised to continue following with surgical team at [facility]. He currently has a dressing applied on his left hand which he was advised not to open until the first postop visit. He has been prescribed Percocet for pain control but he is not taking it right now and states pain is manageable. I have applied the code G2211 to this patient???s visit as the primary care provider dealing with (above mentioned conditions) leading to the extensive work up, and management associated with the medical care of this patient. This patient???s serious conditions and complex medical conditions also required several consultants needing management and coordination through my office. I have reviewed all information as it pertains to the management of this patient for final approval. Follow up for Next scheduled follow-up. Orders Placed This Encounter Procedures Hemoglobin A1c Comprehensive metabolic panel No results found for this or any previous visit (from the past 4 weeks). Len Tobin MD [1] Current Outpatient Medications: B complex tablet, Take 1 Tablet by mouth every morning., Disp: , Rfl: blood-glucose sensor (FreeStyle Lashay 3 Plus Sensor) device, To check blood sugar, Disp: 6 each, Rfl: 1 ciclopirox (PENLAC) 8 % solution, Apply topically at bedtime. Apply over nail and surrounding skin.Apply daily over previous coat. After seven (7) days, may remove with alcohol and continue cycle., Disp: 6.6 mL, Rfl: 3 empagliflozin (Jardiance) 25 mg tablet, Take 1 tablet (25 mg total) by mouth 1 (one) time each day., Disp: 90 tablet, Rfl: 1 Mounjaro 7.5 mg/0.5 mL injection, Inject 0.5 mL (7.5 mg total) under the skin every 7 (seven) days., Disp: 2 mL, Rfl: 2 multivit-min/iron/folic acid/K (ADULTS MULTIVITAMIN ORAL), Take 1 Tablet by mouth every morning., Disp: , Rfl: omega-3 fatty acids 1,000 mg capsule, Take 1 Capsule by mouth daily., Disp: , Rfl: omeprazole OTC (PriLOSEC OTC) 20 mg EC tablet, Take 1 tablet (20 mg total) by mouth 1 (one) time each day. 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, without long-term current use of insulin ([facility] V24, [facility] V28) Lactose intolerance [4] Past Medical History: Diagnosis Date HTN (hypertension) DX:HTN (hypertension) Type 2 diabetes mellitus with hyperglycemia, without long-term current use of insulin (CMS/HCC V24,CMS/HCC V28) 07/21/2023 Type 2 diabetes mellitus without complications (CMS/HCC V24, CMS/HCC V28) DX:Type 2 diabetes mellitus without complications ([facility]) [5] Past Surgical History: Procedure Laterality Date OTHER SURGICAL HISTORY PROCEDURE: DENIES PREVIOUS SURGERY [6] Family History Problem Relation Name Age of Onset Diabetes Father Diabetes Paternal Grandmother documented in this encounter Plan of Treatment Upcoming Encounters Date Type Department Care Team (Late st Contact Info) Description 05/26/2025 8:00 AM EDT Office Visit Adult Medicine [address] [phone] Yasmine Shannon PA [address] [place], [place] 07/24/2025 9:15 AM EDT Office Visit Orthopedic Surgery - [address] [address] Nomi Witt, DPM [address] [facility] [address] [place] [address] Scheduled Orders Name Type Priority Associated Diagnoses Orde r Schedule Hemoglobin A1c Lab Routine 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, without long-term current use of insulin ([facility] V24, [facility] V28) 1 Occurrences starting 02/17/2025 until 02/17/2026 Comprehensive metabolic panel Lab Routine 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, without long-term current use of insulin ([facility] V24, [facility] V28) 1 Occurrences starting 02/17/2025 until 02/17/2026 documented as of this encounter Visit Diagnoses Diagnosis 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, without long-term current use of insulin ([facility] V24, [facility] V28)- Primary Hypertension, unspecified type Displaced fracture of middle phalanx of left middle finger, initial encounter for open fracture documented in this encounter Additional Health Concerns Assessment Noted Time PHQ-9 Depression Total Score: 0 02/18/20 25 10:18 AM EST documented as of this encounter Care Teams Community Development Technician Relationship Specialty Start Date End Date Len Tobin MD [address] [place] [address] PCP - General 07/20/23 documented as of this encounter
[2025-02-21 09:30] VITALS: BMI 32.1
--- NOTE | 2025-02-21 09:30 | A.OFFVIS_ITS ---
Vital Signs 02/21/25 09:30 Height 5 ft 11 in Weight 230 lb BMI 32.1 Intake Visit Reasons: PO 1 week LT MF flexor tendon repair 02/13/25 AR Intake Note: Frantz is a 39 year old right hand dominant male who presents today for a Post-operative Visit status post Left Middle Finger I&D and CRPP, DOS: 02/13/25. Patient reports he is doing well. He denies any pain. He is no longer taking pain medication. Splint removed. Allergies No Known Allergies Allergy (Verified 02/21/25 09:46) HPI HPI PO 1 week LT MF flexor tendon repair 02/13/25 AR: Details: Frantz is a 39 year old right hand dominant male who presents today for a Post-operative Visit status post Left Middle Finger I&D and CRPP, DOS: 02/13/25. Patient reports he is doing well. He denies any pain. He is no longer taking pain medication. Splint removed. Patient reports that he did finish his last course of antibiotics approximately 1-2 days ago. No other acute complaints or concerns at this time. 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 Neuro: Normal sensation of the tips of all digits of the left hand at this time Vascular: Cap refill brisk Pain: Minimal tenderness to palpation on middle phalanx of the left middle finger Skin: There is some mild swelling and very mild redness that is surrounds laceration site on left middle finger No discharge General: No ecchymosis, Mild edema noted of the left middle finger Psych: Appears grossly normal Affect normal Attitude cooperative Office Procedures Casting/Splints 38499-Enyszxg Splint Application Procedure code (CPT) selection complete Results Reviewed Results Reviewed: X-rays obtained in the office today and independently reviewed by me, Alex Victor PA-C, demonstrate left middle finger middle phalanx fracture status post CRPP with all orthopedic hardware in place and in satisfactory clinical alignment. Assessment & Plan Assessment & Plan (1) Open fracture of phalanx of left middle finger: Code(s): S62.603B - Fracture of unspecified phalanx of left middle finger, initial encounter for open fracture Category: Medical (2) Laceration of left index finger: Code(s): S61.211A - Laceration without foreign body of left index finger without damage to nail, initial encounter Category: Medical Plan 1. Status post CRPP of left middle finger middle phalanx DOS 02/13/2025 Patient appears to be recovering fairly well postoperatively Patient is educated about the typical recovery course Antibiotics refilled due to mild redness and mild swelling Patient is placed into a 3 finger ulnar gutter splint Patient is educated on proper splint care and precautions Keep splint clean, dry, intact at all times Take antibiotics as prescribed 2 lb weight limit until follow-up Sutures in index finger removed today without issue Follow-up in 1 week for wound check and suture removal, anticipate cast placement at that time, sooner with any acute concerns Orders: Orders XR hand LT min 3V Today M79.642 - Pain in left hand Medications: Refilled amoxicillin-pot clavulanate 875-125 mg 1 tab PO BID 20 tabs 0RF 10 days Coding Level of Care Code Global (56473) Diagnoses Open fracture of phalanx of left middle finger S62.603B Laceration of left index finger S61.211A CPT Codes Splint - CPT: 61385-Ylwdqcj Splint Application ([id number])
--- OUTSIDE RECORDS SUMMARY | 2025-02-21 11:03 | XMS_ITS | Clinical Summary ---
Author Organization [address] Address [address] [place] [phone] Phone Care Team Providers Care Office Executive Name Role Phone Len Tobin MD Primary [...] (one) time each day. 90 tablet 1 5 Active simethicone (MYLICON) 80 mg chewable tablet Chew 1 tablet (80 mg total) every 6 (six) hours if needed for flatulence. 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 2 mL 2 5 Active blood-glucose sensor (FreeStyle Lashay 3 Plus Sensor) device To check blood sugar 6 each 1 5 Active ciclopirox (PENLAC) 8 % solution Apply topically at bedtime. Apply over nail and surrounding skin. Apply daily over previous coat. After seven (7) days, may remove with alcohol and continue cycle. 6.6 mL 3 5 026 Active Active Problems Problem Noted Date Diagnosed Date Type 2 diabetes mellitus with obesity 02/09/2024 Overview (12/07/2024): 12/07/24 Regulatory IMO Update Type 2 diabetes mellitus wit h both eyes affected by proliferative retinopathy and macular edema, without long-term current use of insulin 02/09/2024 Hypertension 07/21/2023 Lactose intolerance 06/21/2022 Resolved Problems Problem Noted Date Diagnosed Date Resolved Date Type 2 diabetes mellitus wit h hyperglycemia, without long-term current use of insulin 07/21/2023 02/09/2024 Encounters Date Type Department Care Team Description 02/17/2025 10:00 AM EST Office Visit Adult [address] [phone] Len Tobin MD 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, without long-term current use of insulin ([facility] V24, [facility] V28) (Primary Dx); Hypertension, unspecified type; Displaced fracture of middle phalanx of left middle finger, initial encounter for open fracture 01/24/2025 9:30 AM EST Office Visit Orthopedic Surgery - [address] [address] Nomi Witt DPMyke Dermatophytosis of nail (Primary Dx); Diabetic mononeuropathy simplex ([facility] V24, [facility] V28); Ingrowing nail 12/05/2024 Telephone Adult Medicine [address] [phone] Len Tobin MD from Last 3 Months Immunizations Immunization Administration Dates Next Due Tdap Tetanus diptheria acell ular pertussis (Boostrix; Adacel) 7yo and older 01/07/2024 Surgical History Surgery Date Site/Laterality Comments OTHER SURGICAL HISTORY PROCEDURE: DENIES PREVIOUS SURGERY Medical History Medical History Date Comments HTN (hypertension) DX:HTN (hyper tension) Type 2 diabetes mellitus wit hout complications ([facility] V24, [facility] V28) DX:Type 2 diabetes mellitus without complications (HCC) Type 2 diabetes mellitus wit h hyperglycemia, without long-term current use of insulin ([facility] V24, [facility] V28) 07/21/2023 Family History Medical History Relation [...] for your loved ones. For example, child therapist or elderly care for an older adult? [...] on file Sexual Orientation Not on file Last Filed Vital Signs Vital Sign Reading [...] Mass Index 33.47 02/17/2025 10:18 AM EST Plan of Treatment Upcoming Encounters Date Type Department Care Team (Late st Contact Info) Description 05/26/2025 8:00 AM EDT Office Visit Adult Medicine [address] [phone] Yasmine Shannon PA [address] [place], [place] 07/24/2025 9:15 AM EDT Office Visit Orthopedic Surgery - [place] [address] [address] Nomi Witt, DPM [address] [address] Health Maintenance Due Date Last Done Comments Hepatitis B Vaccines (1 of 3 - 19+ 3-dose series) 2004 Diabetes: Annual Foot Exam 08/26/2024 08/27/2023 COVID-19 [...] Completed 05/18/2024 Hepatitis C Screening Completed 05/18/2024 Depression Screening Completed 02/17/2025 HIB Vaccines Aged Out No longer eligi ble based on patient's age to complete this topic HPV Vaccines Discontinued Hepatitis A Vaccines Aged Out No long [...] Procedure Name Priority Date/Time Associated Diagnosis Comments EXTERNAL XRAY REPORT 02/13/2025 EXTERNAL XRAY REPORT 02/07/2025 MICROALBUMIN CREATININE URINE RATIO Routine 09/26/2024 8:23 AM EDT Type 2 diabetes mellitus with obesity ([facility] V24, [facility] V28) 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, without long-term current use of insulin ([facility] V24, [facility] V28) COMPREHENSIVE METABOLIC PANEL Routine 09/26/2024 8:23 AM EDT Type 2 diabetes mellitus with obesity ([facility] V24, [facility] V28) 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, without long-term current use of insulin ([facility] V24, [facility] V28) HEMOGLOBIN A1C Routine 09/26/2024 8:23 AM EDT Type 2 diabetes mellitus with obesity ([facility] V24, [facility] V28) 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, without long-term current use of insulin ([facility] V24, [facility] V28) LIPID PANEL WITH REFLEX TO DIRECT LDL Routine 09/26/2024 8:23 AM EDT Type 2 diabetes mellitus with obesity ([facility] V24, [facility] V28) 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, without long-term current use of insulin ([facility] V24, [facility] V28) HEPATITIS C ANTIBODY Routine 05/18/2024 8:20 AM EDT Need for hepatitis C screening test HIV 1, 2 ANTIBODY, P24 ANTIGEN WITH REFLEX TO DIFFERENTIATION Routine 05/18/2024 8:20 AM EDT Encounter for screening for HIV HM DIABETES FOOT EXAM Routine 08/27/2023 from Last 3 Months or Most Recently Relevant to Health Maintenance Results * External Xray Report (02/13/2025) Only the most recent of2 resultswithin the time period is included. Anatomical Region Laterality Modality Radiographic Jenny ging us Provider [facility] XR PROCEDURES Final Result * (ABNORMAL) Lipid panel with reflex to direct LDL (09/26/2024 8:23 AM EDT) Cholesterol 159 0 - 200 mg/dL LAB CHEMISTRY METHOD 09/26/2024 1:11 PM [facility] Triglycerides 142 0 - 150 mg/dL LAB CHEMISTRY METHOD 09/26/2024 1:11 PM [facility] HDL 39(L) >=40 mg/dL LAB CHEMISTRY METHOD 09/26/2024 1:11 PM T [facility] LDL Calculated 92 0 - 100 mg/dL LAB CHEMISTRY METHOD 09/26/2024 1:11 PM [facility] VLDL Cholesterol Jose Manuel 28.4 mg/dL LAB CHEMISTRY METHOD 09/26/2024 1:11 PM [facility] Non HDL Chol. (LDL+VLDL) 120 <145 mg/dL LAB CHEMISTRY METHOD 09/26/2024 1:11 PM T [facility] Chol/HDL Ratio 4.1 0.0 - 4.4 LAB CHEMISTRY METHOD 09/26/2024 1:11 PM EDT [facility] Blood Venous blood specimen / Unknown Venipuncture / Unknown 09/26/2024 8:23 AM EDT 09/26/2024 8:23 AM EDT us Len Tobin MD LAB BLOOD ORDERABLES F inal Result [facility] [address] [place] [address], [place] [phone] * Microalbumin creatinine urine ratio (09/26/2024 8:23 AM EDT) Creatinine, Urine 126.0 mg/dL LAB CHEMISTRY METHOD 09/26/2024 11:31 AM EDT [facility] Microalb, Ur 9.2 0.0 - 29.0 mg/L LAB CHEMISTRY METHOD 09/26/2024 11:31 AM EDT [facility] Microalb/Creat Ratio 7 <30 mg/g creat LAB CHEMISTRY METHOD 09/26/2024 11:31 AM EDT [facility] Urine Urine specimen obtained by clean catch procedure / Unknown Non-blood Collection / Unknown 09/26/2024 8:23 AM EDT 09/26/2024 8:23 AM EDT us Len Tobin MD LAB URINE ORDERABLES F inal Result [facility] [address] [place] [address], [place] [phone] * (ABNORMAL) Hemoglobin A1c (09/26/2024 8:23 AM EDT) Hemoglobin A1C 6.7(H) <6.5 % LAB CHEMISTRY METHOD 09/26/2024 11:26 AM EDT [facility] Mean Bld Glu Estim. 146 mg/dL LAB CHEMISTRY METHOD 09/26/2024 11:26 AM EDT [facility] Blood Venous blood specimen / Unknown Venipuncture / Unknown 09/26/2024 8:23 AM EDT 09/26/2024 8:23 AM EDT Len Tobin MD LAB BLOOD ORDERABLES F inal Result [facility] [address] [place] [address], [place] [phone] * (ABNORMAL) Comprehensive metabolic panel (09/26/2024 8:23 AM EDT) Sodium 137 133 - 145 mmol/L LAB CHEMISTRY METHOD 09/26/2024 1:11 PM [facility] Potassium 3.9 3.5 - 5.5 mmol/L LAB CHEMISTRY METHOD 09/26/2024 1:11 PM [facility] Chloride 102 96 - 110 mmol/L LAB CHEMISTRY METHOD 09/26/2024 1:11 PM [facility] CO2 30 21 - 32 mmol/L LAB CHEMISTRY METHOD 09/26/2024 1:11 PM [facility] Anion Gap 5 3 - 11 LAB CHEMISTRY METHOD 09/26/2024 1:11 PM [facility] Glucose 136(H) 70 - 100 mg/dL LAB CHEMISTRY METHOD 09/26/2024 1:11 PM [facility] BUN 14 5 - 25 mg/dL LAB CHEMISTRY METHOD 09/26/2024 1:11 PM [facility] Creatinine 0.78 0.70 - 1.30 mg/dL LAB CHEMISTRY METHOD 09/26/2024 1:11 PM [facility] eGFR 116 >=60 mL/min/1. 73m2 LAB CHEMISTRY METHOD 09/26/2024 1:11 PM EDT [facility] Comment:Calculation based on the Chronic Kidney Disease Epidemiology Collaboration (CKD-EPI) equation refit without adjustment for race. BUN/Creatinine Ratio 17.9 LAB CHEMISTRY METHOD 09/26/2024 1:11 PM EDT [facility] Calcium 9.5 8.5 - 10.5 mg/dL LAB CHEMISTRY METHOD 09/26/2024 1:11 PM [facility] AST (SGOT) 16 10 - 42 unit/L LAB CHEMISTRY METHOD 09/26/2024 1:11 PM [facility] ALT (SGPT) 30 10 - 60 unit/L LAB CHEMISTRY METHOD 09/26/2024 1:11 PM [facility] Alkaline Phosphatase 59 42 - 121 unit/L LAB CHEMISTRY METHOD 09/26/2024 1:11 PM [facility] Total Protein 7.7 6.0 - 8.0 g/dL LAB CHEMISTRY METHOD 09/26/2024 1:11 PM [facility] Albumin 4.1 3.2 - 5.0 g/dL LAB CHEMISTRY METHOD 09/26/2024 1:11 PM [facility] Total Bilirubin 0.4 0.0 - 1.4 mg/dL LAB CHEMISTRY METHOD 09/26/2024 1:11 PM [facility] Blood Venous blood specimen / Unknown Venipuncture / Unknown 09/26/2024 8:23 AM EDT 09/26/2024 8:23 AM EDT us Len Tobin MD LAB BLOOD ORDERABLES F inal Result [facility] [address] [place] [address], * Hepatitis C antibody (05/18/2024 8:20 AM EDT) Hepatitis C Antibody Negative Negative LAB CHEMISTRY METHOD 05/18/2024 5:42 PM EDT [facility] Blood Venous blood specimen / Unknown Venipuncture / Unknown 05/18/2024 8:20 AM EDT 05/18/2024 8:20 AM EDT Len Tobin MD LAB BLOOD ORDERABLES F inal Result Performing Organization Address City/[facility]/ZIP Co de Phone Number [facility] [address] [place] [address], [place] [phone] * HIV 1,2 antibody, p24 antigen with reflex to differentiation (05/18/2024 8:20 AM EDT) [facility] HIV Combo AB/AG Negative Negative LAB CHEMISTRY METHOD 05/18/2024 5:42 PM EDT [facility] Blood Venous blood specimen / Unknown Venipuncture / Unknown 05/18/2024 8:20 AM EDT 05/18/2024 8:20 AM EDT Narrative [facility] - 05/18/2024 5:42 PM [...] City/[facility]/ZIP Co de Phone Number [facility] [address] [place] [address], [place] [phone] * Diabetes Foot Exam (08/27/2023) [facility] Diabetes: Annual Foot Exam Abstracted Sidney Morris MD HEALTH MAINTENANCE Final Result from Last 3 Months or Most Recently Relevant to Health Maintenance Insurance [facility] Care Teams Office Executive Relationship Specialty Start Date End Date Len Tobin MD [address] [place] [address] PCP - General 07/20/23
== END 2025-02-21 11:08 | disposition home or self-care (01) ==
LOC: HO.HOS 09:29
PROVIDERS: PCP Internal Medicine
DX: S62.603B Fracture of unspecified phalanx of left middle finger, initial encounter for open fracture (principal); S61.211A Laceration without foreign body of left index finger without damage to nail, initial encounter
CPT/HCPCS: 29125; 99024

== ENCOUNTER 2025-02-21 09:28 | Outpatient (REF) | payer BC, SELFPAY ==
--- NOTE | ~2025-02-21 | XR_ITS ---
EXAMINATION: XR HAND, LEFT CLINICAL INFORMATION: M79.642 - Pain in left hand COMPARISON: 02/08/2025 TECHNIQUE: PA, lateral, and oblique views of the left hand. FINDINGS: 3 K wires have been placed across an intra-articular fracture of the head and central region of the middle phalanx of the third digit. 2 Wires are placed from the ulnar side through the head, and one wire has been placed obliquely from the proximal ulnar base into the neck on the radial side. There is persistent small gap at the articular surface 1 mm wide. Fracture lucency is less distinct on the current study. There is chronic deformity of the base of the middle phalanx the fifth digit with an overhanging margin on the radial side. XR/XR hand LT min 3V IMPRESSION: Healing intra-articular fracture involving the middle phalanx of the third digit post-external fixator. Electronically signed by: Dejon Moran MD 02/21/2025 10:16 AM [facility]
--- OUTSIDE RECORDS SUMMARY | 2025-02-21 12:08 | XMS_ITS | Data Portability ---
Author Organization VIDHYA Corbin [id number] Address [address] [place] [address] Assessment No assessment recorded. Plan of Treatment [...] By Organization Details Last Modified Time 06/21/2022 [id number] eustachian tube problems: care instructions [email or web address] Not available 06/21/2022 15:00:41 Based on your physical exam and presentation, you are being diagnosed with Eustachian Tube Dysfunction. This occurs when fluid/mucous or swelling closes off the tubes that help the ears equalize the pressure. The following are my recommendations to help with these symptoms and get this condition to resolve: 1. Saline Nasal [place] 2. Antihistamines like Claritin, Zyrtec, Diana, or [...] to call or reach out to us. Not available 06/21/2022 15:00:05 Reason for Referral None Reported. Problems Name Problem SNOMED Code Status Onset Date Resolution Date Notes Provider Name and Address Organization Details Recorded Time Type 2 diabetes mellitus 17110082 Active 2022 WILLY jose PA - [facility] 3 14:50:32 Intolerance to lactose 229646903 Active 2022 WILLY jose [facility] - [facility] [...] Updated DateTime 3 180.34 cm 32.4 kg/m2 016253. 43 g 98 [degF] 18 /min 100 /min 98 % 139/87 mm[Hg] WILLY Lewis PA - [facility] 14:53:11 Social History Question Answer Notes LastModified by [employer] Details LastModified Time Tobacco Smoking Status Never [...] ICD10 Code Diagnosis IMO Codes Diagnosis Note [id number] [address] [address] [place] [address] 03/29/2020 13:49:29 03/29/2020 15:17:21 [id number] VIDHYA BOWDEN [address] [address] [place] [address] 06/21/2022 14:16:00 06/21/2022 15:08:11 Dysfunction of right eustachian tube [id number] H69.91 Saline nasal spray. Continue the Jaren [...] ID Guarantor Name 06/21/2022 1 AETCAITLIN (EPO) [id number] Sukhjinder Jackson [id number] Sukhjinder Jackson 06/21/2022 1 SHAWNA (PPO) Sukhjinder Jackson [id number] Sukhjinder Jackson Notes Date Note Type [...] TM or have an infection. VIDHYA BOWDEN [facility] [place], [address], PA - [facility] 06/21/2022 15:03:48
== END 2025-02-21 09:29 | disposition home or self-care (01) ==
LOC: HO.HOSX 09:28
PROVIDERS: PCP Internal Medicine
DX: S62.623D Displaced fracture of middle phalanx of left middle finger, subsequent encounter for fracture with routine healing (principal); X58.XXXD Exposure to other specified factors, subsequent encounter
CPT/HCPCS: 73130

== ENCOUNTER → 2025-02-21 10:02 | Outpatient (BNV) | payer BC, SELFPAY | PROVIDERS: PCP Internal Medicine; Visit Provider Radiology Diagnostic Radiology | DX: S62.623D Displaced fracture of middle phalanx of left middle finger, subsequent encounter for fracture with routine healing (principal) | CPT/HCPCS: 73130 ==

== ENCOUNTER 2025-02-28 13:09 | Outpatient (REF) | payer BC, SELFPAY ==
--- NOTE | ~2025-02-28 | XR_ITS ---
EXAMINATION: XR HAND 3 OR MORE VIEWS LEFT HISTORY: M79.642 - Pain in left hand COMPARISON: Comparison is made with the prior examination dated 02/21/2025. FINDINGS: Three views of the left hand are submitted. Osseous mineralization is normal. The patient is again noted to be status post internal fixation of a comminuted intra-articular fracture of the head of the 3rd middle phalanx with 3 K wires. The fracture lines remain visible. There is degenerative change of the 5th PIP joint. The soft tissues are unremarkable. XR/XR hand LT min 3V IMPRESSION: Internal fixation of a comminuted intra-articular fracture of the head of the 3rd middle phalanx without significant change. Electronically signed by: Carlos Holm MD 02/28/2025 02:10 PM EST
--- OUTSIDE RECORDS SUMMARY | 2025-02-28 14:39 | XMS_ITS | Data Portability ---
Author Organization VIDHYA Corbin [id number] Address [address] [place] [address] Assessment No assessment recorded. Plan of Treatment [...] By Organization Details Last Modified Time 06/21/2022 [id number] eustachian tube problems: care instructions [email or web address] Not available 06/21/2022 15:00:41 Based on your physical exam and presentation, you are being diagnosed with Eustachian Tube Dysfunction. This occurs when fluid/mucous or swelling closes off the tubes that help the ears equalize the pressure. The following are my recommendations to help with these symptoms and get this condition to resolve: 1. Saline Nasal Bishop 2. Antihistamines like Claritin, Zyrtec, [place], or [...] to call or reach out to us. [email or web address] Not available 06/21/2022 15:00:05 Reason for Referral None Reported. Problems Name Problem SNOMED Code Status Onset Date Resolution Date Notes Provider Name and Address Organization Details Recorded Time Type 2 diabetes mellitus 56895084 Active 2022 WILLY jose PA - [facility] 3 14:50:32 Intolerance to lactose 386302901 Active 2022 WILLY jose [facility] - [facility] [...] Updated DateTime 3 180.34 cm 32.4 kg/m2 270324. 43 g 98 [degF] 18 /min 100 /min 98 % 139/87 mm[Hg] WILLY Lewis PA - [facility] 14:53:11 Social History Question Answer Notes LastModified by Lanica Details LastModified Time Tobacco Smoking Status Never [...] ICD10 Code Diagnosis IMO Codes Diagnosis Note [id number] [address] [place] [address] 03/29/2020 13:49:29 03/29/2020 15:17:21 [id number] VIDHYA BOWDEN [address] [facility] [address] [place] [address] 06/21/2022 14:16:00 06/21/2022 15:08:11 Dysfunction of right eustachian tube [id number] H69.91 Saline nasal spray. Continue the Jaren [...] ID Guarantor Name 06/21/2022 1 AETCAITLIN (EPO) [id number] Sukhjinder Jackson [id number] Sukhjinder Jackson 06/21/2022 1 SHAWNA (PPO) Sukhjinder Jackson [id number] Sukhjinder Jackson Notes Date Note Type [...] TM or have an infection. VIDHYA BOWDEN [facility] [place], [address], PA - [facility] 06/21/2022 15:03:48
== END 2025-02-28 13:10 | disposition home or self-care (01) ==
LOC: HO.HOSX 13:09
PROVIDERS: PCP Internal Medicine
DX: Z47.89 Encounter for other orthopedic aftercare (principal); S62.603D Fracture of unspecified phalanx of left middle finger, subsequent encounter for fracture with routine healing; S61.211D Laceration without foreign body of left index finger without damage to nail, subsequent encounter; X58.XXXD Exposure to other specified factors, subsequent encounter
CPT/HCPCS: 29085; 73130

== ENCOUNTER 2025-02-28 13:09 | Outpatient (AMB) | payer BC, SELFPAY ==
[2025-02-28 13:14] VITALS: BMI 32.1
--- NOTE | 2025-02-28 13:14 | MHC.OFFVIS ---
Vital Signs 02/28/25 13:14 Height 5 ft 11 in Weight 230 lb BMI 32.1 Intake Visit Reasons: PO 2 week LT MF flexor tendon repair 02/13/25 AR Intake Note: Frantz is a 39 year old right hand dominant male who presents today Post-operatively for a Wound Check & Suture Removal status post Left Middle Finger I&D and CRPP, DOS: 02/13/25. At his last visit his antibiotics were refilled. he was placed into a 3 finger ulnar gutter splint. 2 lb weight limit until follow up. Today dressing and splint was removed. States he has no pain at all or numbness. He does experience tingling on and off very randomly. Allergies No Known Allergies Allergy (Verified 02/28/25 13:27) HPI HPI PO 2 week LT MF flexor tendon repair 02/13/25 AR: Details: Frantz is a 39 year old right hand dominant male who presents today Post-operatively for a Wound Check & Suture Removal status post Left Middle Finger I&D and CRPP, DOS: 02/13/25. At his last visit his antibiotics were refilled. he was placed into a 3 finger ulnar gutter splint. 2 lb weight limit until follow up. Today dressing and splint was removed. States he has no pain at all or numbness. He does experience tingling on and off very randomly. 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 Neuro: Normal sensation of the tips of all digits of the left hand at this time Vascular: Cap refill brisk Pain: No further tenderness to palpation on middle phalanx of the left middle finger Skin: Swelling and redness have resolved completely around laceration of the left middle finger Pin sites clean, dry, intact No discharge General: No ecchymosis, Edema has resolved Psych: Appears grossly normal Affect normal Attitude cooperative Office Procedures Casting/Splints 18735-Gtwe/Wrist Cast Application Procedure code (CPT) selection complete Assessment & Plan Assessment & Plan (1) Open fracture of phalanx of left middle finger: Code(s): S62.603B - Fracture of unspecified phalanx of left middle finger, initial encounter for open fracture Category: Medical (2) Laceration of left index finger: Code(s): S61.211A - Laceration without foreign body of left index finger without damage to nail, initial encounter Category: Medical Plan 1. Status post CRPP of left middle finger middle phalanx DOS 02/13/2025 Patient appears to be recovering fairly well postoperatively Patient is educated about the typical recovery course Antibiotics refilled due to mild redness and mild swelling Patient is placed into a 3 finger ulnar gutter cast Patient is educated on proper cast care and precautions Keep splint clean, dry, intact at all times Finish current course of antibiotics, no need for refill at this time 2 lb weight limit until follow-up Sutures in middle finger removed today without issue Follow-up in 2 weeks for reassessment, anticipate cast removal and pin pulling at that time, sooner with any acute concerns Orders: Orders XR hand LT min 3V Today M79.642 - Pain in left hand Coding Level of Care Code Global (88417) Diagnoses Open fracture of phalanx of left middle finger S62.603B Laceration of left index finger S61.211A CPT Codes Casting - CPT: 33920-Awmf/Wrist Cast Application ([id number])
--- OUTSIDE RECORDS SUMMARY | 2025-02-28 14:17 | XMS_ITS | Clinical Summary ---
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, without long-term current use of insulin ([facility] V24, [facility] V28) (Primary Dx); Hypertension, unspecified type; Displaced fracture of middle phalanx of left middle finger, initial encounter for open fracture 01/24/2025 9:30 AM EST Office Visit Orthopedic Surgery - [address] [phone] Nomi Witt DPMyke Dermatophytosis of nail (Primary Dx); Diabetic mononeuropathy simplex ([facility] V24, [facility] V28); Ingrowing nail 12/05/2024 Telephone Adult Medicine [address] [phone] Len Tobin MD from Last 3 Months Immunizations Immunization Administration Dates Next Due Tdap Tetanus diptheria acell ular pertussis (Boostrix; Adacel) 7yo and older 01/07/2024 Surgical History Surgery Date Site/Laterality Comments OTHER SURGICAL HISTORY PROCEDURE: DENIES PREVIOUS SURGERY Medical History Medical History Date Comments HTN (hypertension) DX:HTN (hyper tension) Type 2 diabetes mellitus wit hout complications ([facility] V24, [facility] V28) DX:Type 2 diabetes mellitus without complications (HCC) Type 2 diabetes mellitus wit h hyperglycemia, without long-term current use of insulin ([facility] V24, [facility] V28) 07/21/2023 Family History Medical History Relation [...] care for your loved ones. For example, childbirth and infant care teacher or elderly care for an older adult? [...] 8:00 AM EDT Office Visit Adult Medicine [address] [phone] Yasmine Shannon PA [address] [place], [place] 07/24/2025 9:15 AM EDT Office Visit Orthopedic Surgery - [place] [address] [address] Nomi Witt, DPM [address] [phone] Health Maintenance Due Date Last [...] Date/Time Associated Diagnosis Comments EXTERNAL XRAY REPORT 02/21/2025 EXTERNAL XRAY REPORT 02/21/2025 EXTERNAL XRAY REPORT 02/13/2025 EXTERNAL XRAY REPORT 02/07/2025 MICROALBUMIN CREATININE URINE RATIO Routine 09/26/2024 8:23 AM EDT Type 2 diabetes mellitus with obesity ([facility] V24, [facility] V28) 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, without long-term current use of insulin ([facility] V24, [facility] V28) COMPREHENSIVE METABOLIC PANEL Routine 09/26/2024 8:23 AM EDT Type 2 diabetes mellitus with obesity ([facility] V24, [facility] V28) 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, without long-term current use of insulin ([facility] V24, [facility] V28) HEMOGLOBIN A1C Routine 09/26/2024 8:23 AM EDT Type 2 diabetes mellitus with obesity ([facility] V24, [facility] V28) 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, without long-term current use of insulin ([facility] V24, [facility] V28) LIPID PANEL WITH REFLEX TO DIRECT LDL Routine 09/26/2024 8:23 AM EDT Type 2 diabetes mellitus with obesity ([facility]/HCC V24, [facility] V28) 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 Anatomical Region Laterality Modality Radiographic Jenny ging us Provider [facility] IMG XR PROCEDURES Final Result * (ABNORMAL) Lipid panel with reflex to direct LDL (09/26/2024 8:23 AM EDT) Cholesterol 159 0 - 200 mg/dL LAB CHEMISTRY METHOD 09/26/2024 1:11 PM EDT [facility] Triglycerides 142 0 - 150 mg/dL LAB CHEMISTRY METHOD 09/26/2024 1:11 PM EDT [facility] HDL 39(L) >=40 mg/dL LAB CHEMISTRY METHOD 09/26/2024 1:11 PM EDT [facility] LDL Calculated 92 0 - 100 mg/dL LAB CHEMISTRY METHOD 09/26/2024 1:11 PM EDT [facility] VLDL Cholesterol Jose Manuel 28.4 mg/dL LAB CHEMISTRY METHOD 09/26/2024 1:11 PM EDT [facility] Non HDL Chol. (LDL+VLDL) 120 <145 mg/dL LAB CHEMISTRY METHOD 09/26/2024 1:11 PM EDT [facility] Chol/HDL Ratio 4.1 0.0 - 4.4 LAB CHEMISTRY METHOD 09/26/2024 1:11 PM EDT [facility] Blood Venous blood specimen / Unknown Venipuncture / Unknown 09/26/2024 8:23 AM EDT 09/26/2024 8:23 AM EDT us Len Tobin MD LAB BLOOD ORDERABLES F inal Result Performing Organization Address City/[facility]/ZIP Co de Phone Number [facility] [address] [place] [address], [place] [phone] * Microalbumin creatinine urine ratio (09/26/2024 8:23 AM EDT) Creatinine, Urine 126.0 mg/dL LAB CHEMISTRY METHOD 09/26/2024 11:31 AM EDT [facility] Microalb, Ur 9.2 0.0 - 29.0 mg/L LAB CHEMISTRY METHOD 09/26/2024 11:31 AM EDT [facility] Microalb/Creat Ratio 7 <30 mg/g creat LAB CHEMISTRY METHOD 09/26/2024 11:31 AM EDT [facility] Urine Urine specimen obtained by clean catch procedure / Unknown Non-blood Collection / Unknown 09/26/2024 8:23 AM EDT 09/26/2024 8:23 AM EDT us Len Tobin MD LAB URINE ORDERABLES F inal Result Performing Organization Address City/[facility]/ZIP Co de Phone Number [facility] [address] [place] [address], [place] [phone] * (ABNORMAL) Hemoglobin A1c (09/26/2024 8:23 AM EDT) Hemoglobin A1C 6.7(H) <6.5 % LAB CHEMISTRY METHOD 09/26/2024 11:26 AM T [facility] Mean Bld Glu Estim. 146 mg/dL LAB CHEMISTRY METHOD 09/26/2024 11:26 AM [facility] Blood Venous blood specimen / Unknown Venipuncture / Unknown 09/26/2024 8:23 AM EDT 09/26/2024 8:23 AM EDT us Len Tobin MD LAB BLOOD ORDERABLES F inal Result [facility] [address] [place] [address], [place] [phone] * (ABNORMAL) Comprehensive metabolic panel (09/26/2024 8:23 AM EDT) Sodium 137 133 - 145 mmol/L LAB CHEMISTRY METHOD 09/26/2024 1:11 PM [facility] Potassium 3.9 3.5 - 5.5 mmol/L LAB CHEMISTRY METHOD 09/26/2024 1:11 PM [facility] Chloride 102 96 - 110 mmol/L LAB CHEMISTRY METHOD 09/26/2024 1:11 PM [facility] CO2 30 21 - 32 mmol/L LAB CHEMISTRY METHOD 09/26/2024 1:11 PM [facility] Anion Gap 5 3 - 11 LAB CHEMISTRY METHOD 09/26/2024 1:11 PM [facility] Glucose 136(H) 70 - 100 mg/dL LAB CHEMISTRY METHOD 09/26/2024 1:11 PM [facility] BUN 14 5 - 25 mg/dL LAB CHEMISTRY METHOD 09/26/2024 1:11 PM [facility] Creatinine 0.78 0.70 - 1.30 mg/dL LAB CHEMISTRY METHOD 09/26/2024 1:11 PM [facility] eGFR 116 >=60 mL/min/1. 73m2 LAB CHEMISTRY METHOD 09/26/2024 1:11 PM EDT [facility] Comment:Calculation based on the Chronic Kidney Disease Epidemiology Collaboration (CKD-EPI) equation refit without adjustment for race. BUN/Creatinine Ratio 17.9 LAB CHEMISTRY METHOD 09/26/2024 1:11 PM EDT [facility] Calcium 9.5 8.5 - 10.5 mg/dL LAB CHEMISTRY METHOD 09/26/2024 1:11 PM EDT [facility] AST (SGOT) 16 10 - 42 unit/L LAB CHEMISTRY METHOD 09/26/2024 1:11 PM [facility] ALT (SGPT) 30 10 - 60 unit/L LAB CHEMISTRY METHOD 09/26/2024 1:11 PM [facility] Alkaline Phosphatase 59 42 - 121 unit/L LAB CHEMISTRY METHOD 09/26/2024 1:11 PM [facility] Total Protein 7.7 6.0 - 8.0 g/dL LAB CHEMISTRY METHOD 09/26/2024 1:11 PM [facility] Albumin 4.1 3.2 - 5.0 g/dL LAB CHEMISTRY METHOD 09/26/2024 1:11 PM [facility] Total Bilirubin 0.4 0.0 - 1.4 mg/dL LAB CHEMISTRY METHOD 09/26/2024 1:11 PM [facility] Blood Venous blood specimen / Unknown Venipuncture / Unknown 09/26/2024 8:23 AM EDT 09/26/2024 8:23 AM EDT us Len Tobin MD LAB BLOOD ORDERABLES F inal Result [facility] [address] [place] [address], * Hepatitis C antibody (05/18/2024 8:20 AM EDT) [facility] Hepatitis C Antibody Negative Negative LAB CHEMISTRY METHOD 05/18/2024 5:42 PM EDT [facility] Blood Venous blood specimen / Unknown Venipuncture / Unknown 05/18/2024 8:20 AM EDT 05/18/2024 8:20 AM EDT Len Tobin MD LAB BLOOD ORDERABLES F inal Result Performing Organization Address City/[facility]/ZIP Co de Phone Number [facility] [address] [place] [address], * HIV 1,2 antibody, p24 antigen with reflex to differentiation (05/18/2024 8:20 AM EDT) [facility] HIV Combo AB/AG Negative Negative LAB CHEMISTRY METHOD 05/18/2024 5:42 PM EDT [facility] Blood Venous blood specimen / Unknown Venipuncture / Unknown 05/18/2024 8:20 AM EDT 05/18/2024 8:20 AM EDT Narrative [facility] - 05/18/2024 5:42 PM EDT This assay is a 4th generation assay allowing for earlier detection of HIV infection by detecting the presence of the HIV-1 p24 antigen as well as the traditional antibodies to HIV type 1 (including group O) and type 2. Use of a 4th generation assay is the current CDC recommendation for HIV screening. us Len Tobin MD LAB BLOOD ORDERABLES F inal Result Performing Organization Address City/[facility]/ZIP Co de Phone Number [facility] [address] [place] [address], [place] [phone] * Hm Diabetes Foot Exam (08/27/2023) [facility] Diabetes: Annual Foot Exam Abstracted Historical Provider HEALTH MAINTENANCE Final Result from Last 3 Months or Most Recently Relevant to Health Maintenance Insurance [facility]) Care Teams Blow Machine Tender Starch Spraying Relationship Specialty Start Date End Date Len Tobin MD [address] [facility] [place] [address] PCP - General 07/20/23
== END 2025-02-28 14:52 | disposition home or self-care (01) ==
LOC: HO.HOS 13:10
PROVIDERS: PCP Internal Medicine
DX: S62.603B Fracture of unspecified phalanx of left middle finger, initial encounter for open fracture (principal); S61.211A Laceration without foreign body of left index finger without damage to nail, initial encounter
CPT/HCPCS: 29085; 99024

== ENCOUNTER → 2025-02-28 13:38 | Outpatient (BNV) | payer BC, SELFPAY | PROVIDERS: PCP Internal Medicine; Visit Provider Radiology Diagnostic Radiology | DX: S62.623 Displaced fracture of middle phalanx of left middle finger (principal) | CPT/HCPCS: 73130 ==